=== PATIENT | female | born 1940 | race Caucasian/White ===

== ENCOUNTER → 2017-11-24 | Outpatient (CLI) | payer MEDICARE, OTHER ==
--- NOTE | 2017-11-24 15:05 | XR ---
EXAMINATION TYPE: XR chest 2V DATE OF EXAM: 11/24/2017 COMPARISON: None HISTORY: 77-year-old female with cough TECHNIQUE: Frontal and lateral views FINDINGS: S-shaped scoliosis and accentuated mid thoracic kyphosis. Mild anterior wedging of a midthoracic vert ebral body. Age indeterminate. Heart normal size. Aorta and pulmonary vasculature are within normal l imits. Mild hyperinflation. There is some patchy density at the peripheral left base. No other consol idation or pleural effusion. IMPRESSION: 1. Possible underlying COPD. 2. Some patchy peripheral left basilar density could represent early developing infiltrate. 3. S-shaped scoliosis. 4. Anterior wedging of a midthoracic vertebral body is age indeterminate. Correlate for focal pain at this level.
== END | disposition home or self-care (01) ==
LOC: RADXRYALE 11:19
PROVIDERS: ATTEND Internal Medicine
DX: J98.4 Other disorders of lung (principal); R05 Cough
CPT/HCPCS: 71046

== ENCOUNTER 2017-12-15 16:42 | Emergency (ER) | payer MEDICARE, OTHER ==
[2017-12-15 16:56] VITALS: BP 179/85; PULSE 85; RESP 17; TEMP 97.5
[2017-12-15] MEDS ORDERED: LIDOCAINE/EPINEPHR/TETRACAINE 5 ML BOTTLE TOPICAL ONE (17:03)
[2017-12-15] MEDS ORDERED: DIPH,PERTUS(ACELL)TETVAC-LF 0.5 ML VIAL IM ONE (17:03)
--- NOTE | 2017-12-15 17:37 | XR ---
EXAMINATION TYPE: XR shoulder complete LT DATE OF EXAM: 12/15/2017 COMPARISON: NONE HISTORY: Shoulder pain TECHNIQUE: 3 views FINDINGS: I see no fracture nor dislocation. Joint spaces are fairly normal. There is mild spurring o f the inferior glenoid labrum. IMPRESSION: Minimal spurring. No fracture seen.
--- NOTE | 2017-12-15 17:41 | CT ---
EXAMINATION TYPE: CT brain reilly day DATE OF EXAM: 12/15/2017 COMPARISON: NONE HISTORY: Fall today with chin injury CT DLP: 1354.9 mGycm Automated exposure control for dose reduction was used. TECHNIQUE: CT scan of the head and cervical spine are performed without contrast. FINDINGS: There is cerebral cortical atrophy. There is no mass effect nor midline shift. There is n o sign of intracranial hemorrhage. There is some patchy hypodensity in the periventricular white guille er. The calvarium appears intact. The cervical vertebra have fairly normal alignment. There is mild spurring of the endplates. There is spurring at C5-6 anteriorly and posteriorly. Facet joints are intact. There is no sign of a fracture . The skull base appears intact. IMPRESSION: Cerebral atrophy and chronic small vessel ischemia. No acute intracranial abnormality. Mild spondylotic changes in the cervical spine. No fracture. Bone island noted in the left side C2 ve rtebral body.
--- NOTE | 2017-12-15 17:48 | ED ---
General Adult HPI - General Chief complaint: Wound/Laceration Stated complaint: Fall Time Seen by Provider: 12/15/17 16:58 Source: patient, RN notes reviewed Mode of arrival: wheelchair Limitations: no limitations - History of Present Illness Initial comments: 77-year-old female presents to the emergency department with cc of fall. patient tripped on her sock today and fell forward onto her chin. There was no LOC. She denies any lightheadedness or dizziness before the fall. She states that she fell forward and she hit her chin. She also complains of some left shoulder pain. She has not any blood thinners. There were concerned due to the bleeding from the chin so they thought that they should be seen. They do not recall her last tetanus. They deny any other symptoms and the patient. Patient denies any headache.Patient denies any recent fever, chills, shortness of breath, chest pain, back pain, abdominal pain, nausea vomiting, numbness or tingling, dysuria or hematuria, constipation or diarrhea, headaches or visual changes, or any other current symptoms. - Related Data Allergies Allergy/AdvReac Type Severity Reaction Status Date / Time No Known Allergies Allergy Verified 12/15/17 16:51 Review of Systems ROS Statement: Those systems with pertinent positive or pertinent negative responses have been documented in the HPI. ROS Other: All systems not noted in ROS Statement are negative. Past Medical History Past Medical History: Hypertension, Thyroid Disorder History of Any Multi-Drug Resistant Organisms: None Reported Past Surgical History: Unable to Obtain Past Psychological History: No Psychological Hx Reported Smoking Status: Never smoker Past Alcohol Use History: None Reported Past Drug Use History: None Reported General Exam Limitations: no limitations General appearance: alert, in no apparent distress Head exam: Present: atraumatic, normocephalic, normal inspection, other (chin laceration 3 cm) Eye exam: Present: normal appearance, PERRL, EOMI. Absent: scleral icterus, conjunctival injection, periorbital swelling ENT exam: Present: normal exam, mucous membranes moist Neck exam: Present: normal inspection. Absent: tenderness, meningismus, lymphadenopathy Respiratory exam: Present: normal lung sounds bilaterally. Absent: respiratory distress, wheezes, rales, rhonchi, stridor Cardiovascular Exam: Present: regular rate, normal rhythm, normal heart sounds. Absent: systolic murmur, diastolic murmur, rubs, gallop, clicks GI/Abdominal exam: Present: soft, normal bowel sounds. Absent: distended, tenderness, guarding, rebound, rigid Extremities exam: Present: normal inspection, full ROM, tenderness (minimal to the left shoulder), normal capillary refill. Absent: pedal edema, joint swelling, calf tenderness Back exam: Present: normal inspection, full ROM. Absent: tenderness Neurological exam: Present: alert Psychiatric exam: Present: normal affect, normal mood Skin exam: Present: warm, dry, intact, normal color. Absent: rash Course Vital Signs 12/15/17 16:52 Temperature 97.5 F L Pulse Rate 85 Respiratory 17 Rate Blood Pressure 179/85 O2 Sat by Pulse 95 Oximetry Procedures - Procedures Initial comment: The skin was anesthetized with 1% lidocaine. The laceration was then cleansed with Betadine and irrigated with normal saline. The wound was inspected, and there was no evidence of injury to deep structures. No foreign body was noted in the wound. A total of 4 skin sutures were placed utilizing 6-0 nylon to a 3 cm chin laceration. Medical Decision Making - Medical Decision Making 77-year-old female presents for treatment fall. This time x-rays are reviewed that showed no acute process. At this time patient's did refuse her tetanus because she believes that she does have a reaction to it. At this time we did undergo suture care. We discussed follow-up return parameters. We discussed long-term and all questions. They stated the [facility] management this is an. All questions have been answered. They will be discharged. - Radiology Data Radiology results: report reviewed, image reviewed Disposition Clinical Impression: Fall, Chin laceration, Contusion of left shoulder Disposition: HOME SELF-CARE Condition: Stable Instructions: Care For Your Stitches (ED), Stitches Removal (ED) Additional Instructions: Please use medication as discussed. Please follow up with family doctor if symptoms have not improved over the next two days. Please return to the emergency room if your symptoms increase or worsen or for any other concerns. Please return to the emergency room in 5 days to have sutures removed. Please leave wound covered for the first 24-48 hours and then leave open to air after that time. Please use clean soap and water to clean the suture area to prevent scabbing over the top of your sutures. Please watch for any signs of infection which may include but not limited to increased pain, swelling, redness, fever or chills. Please return to the emergency room if any signs of infection do occur. Please return to the emergency room for any other concerns or complications. Referrals: Kelin To MD [Primary Care Provider] - 1-2 days Time of Disposition: 17:59
== END 2017-12-15 18:12 | disposition home or self-care (01) ==
LOC: EC 16:42
DX: S01.81XA Laceration without foreign body of other part of head, initial encounter (principal); S40.012A Contusion of left shoulder, initial encounter; Z53.29 Procedure and treatment not carried out because of patient's decision for other reasons; W01.198A Fall on same level from slipping, tripping and stumbling with subsequent striking against other object, initial encounter
CPT/HCPCS: 12013; 70450; 72125; 99284

== ENCOUNTER 2018-02-11 16:14 | Observation (INO) | payer MEDICARE, OTHER ==
[2018-02-11] MEDS ORDERED: SODIUM CHLORIDE 0.9% 500 ML IV ONE (16:25)
[2018-02-11] MEDS ORDERED: SODIUM CHLORIDE 0.9% 1,000 ML IV ONE (16:25)
[2018-02-11 16:30] LABS: Glucose,Whole Blood 146 mg/dL (75-99)
--- NOTE | 2018-02-11 16:35 | ED ---
General Adult HPI - General Chief complaint: Altered Mental Status Stated complaint: CONFUSION X 3 DAYS Time Seen by Provider: 02/11/18 16:25 Source: family, RN notes reviewed, old records reviewed Mode of arrival: wheelchair Limitations: no limitations - History of Present Illness Initial comments: This is a 78-year-old female the ER for evaluation regarding to altered mental state. Patient is on multiple medications for dementia, main combative and argumentative with staff which is similar she's had before but is much worse today. Family also states patient's blood pressure is out of control. Patient herself denies any complaint - Related Data Home Medications Medication Instructions Recorded Confirmed Carbidopa-Levodopa 25-100 mg 2.5 tab PO QID 02/11/18 02/12/18 [Sinemet 25-100 mg] Fludrocortisone [Florinef] 0.1 mg PO DAILY 02/11/18 02/12/18 Ibuprofen [Ibuprofen] 600 mg PO Q6H PRN 02/11/18 02/12/18 Memantine [Namenda] 5 mg PO BID@0800,1600 02/11/18 02/12/18 Pimavanserin Tartrate [Nuplazid] 34 mg PO DAILY 02/11/18 02/12/18 Propylene Glycol/Peg 400/Pf 1 drop BOTH EYES BID 02/11/18 02/12/18 [Systane 0.3-0.4% Eye Drops] Sertraline [Zoloft] 50 mg PO DAILY 02/11/18 02/12/18 rOPINIRole HCL [Requip] 0.25 mg PO TID@0800,1200,1800 02/11/18 02/12/18 Previous Rx's Medication Instructions Recorded ALPRAZolam [Xanax] 0.25 mg PO TID PRN 3 Days #9 tab 02/12/18 QUEtiapine [SEROquel] 25 mg PO HS PRN #20 tab 02/12/18 Allergies Allergy/AdvReac Type Severity Reaction Status Date / Time iodine Allergy Unknown Verified 02/12/18 08:11 Review of Systems ROS Statement: Those systems with pertinent positive or pertinent negative responses have been documented in the HPI. ROS Other: All systems not noted in ROS Statement are negative. Past Medical History Past Medical History: Dementia, Hypertension, Thyroid Disorder Additional Past Medical History / Comment(s): parkinsons disease History of Any Multi-Drug Resistant Organisms: None Reported Past Surgical History: Unable to Obtain Past Psychological History: Depression Smoking Status: Never smoker Past Alcohol Use History: None Reported Past Drug Use History: None Reported - Past Family History Sister(s) Family Medical History: Musculoskeletal Disorder Additional Family Medical History / Comment(s): One sister had MS, one sister has chronic UTIs. Brother(s) Additional Family Medical History / Comment(s): Essential tremors Father Additional Family Medical History / Comment(s): Had heart problems, been 50 years. General Exam Limitations: no limitations General appearance: alert, in no apparent distress Head exam: Present: atraumatic, normocephalic, normal inspection Eye exam: Present: normal appearance, PERRL, EOMI. Absent: scleral icterus, conjunctival injection, periorbital swelling ENT exam: Present: normal exam, mucous membranes moist Neck exam: Present: normal inspection. Absent: tenderness, meningismus, lymphadenopathy Respiratory exam: Present: normal lung sounds bilaterally. Absent: respiratory distress, wheezes, rales, rhonchi, stridor Cardiovascular Exam: Present: regular rate, normal rhythm, normal heart sounds. Absent: systolic murmur, diastolic murmur, rubs, gallop, clicks GI/Abdominal exam: Present: soft, normal bowel sounds. Absent: distended, tenderness, guarding, rebound, rigid Extremities exam: Present: normal inspection, full ROM, normal capillary refill. Absent: tenderness, pedal edema, joint swelling, calf tenderness Back exam: Present: normal inspection Neurological exam: Present: alert, oriented X3, CN II-XII intact Psychiatric exam: Present: normal affect, normal mood Skin exam: Present: warm, dry, intact, normal color. Absent: rash Course Vital Signs 02/11/18 02/11/18 02/11/18 16:19 17:10 17:35 Temperature 97.3 F L Pulse Rate 81 96 102 H Respiratory 20 20 20 Rate Blood Pressure 202/95 188/98 159/82 O2 Sat by Pulse 98 100 100 Oximetry 02/11/18 02/11/18 18:35 20:00 Temperature 98.6 F Pulse Rate 77 92 Respiratory 18 22 Rate Blood Pressure 168/67 168/80 O2 Sat by Pulse 100 99 Oximetry EKG Findings - EKG Comments: EKG Findings:: EKG shows sinus rhythm rate of 88, GA 172, QRS 70, QTc 462 Medical Decision Making - Medical Decision Making 78 female the ER for evaluation cough congestion shortness of breath patient will be admitted for breathing treatments and monitoring of cardiopulmonary status - Lab Data Result diagrams: 02/11/18 17:10 02/11/18 17:10 Lab Results 02/11/18 02/11/18 02/11/18 Range/Units 16:29 17:10 17:10 WBC (3.8-10.6) k/uL RBC (3.80-5.40) m/uL Hgb (11.4-16.0) gm/dL Hct (34.0-46.0) % MCV (80.0-100.0) fL MCH (25.0-35.0) pg MCHC (31.0-37.0) g/dL RDW (11.5-15.5) % Plt Count (150-450) k/uL Neutrophils % % Lymphocytes % % Monocytes % % Eosinophils % % Basophils % % Neutrophils # (1.3-7.7) k/uL Lymphocytes # (1.0-4.8) k/uL Monocytes # (0-1.0) k/uL Eosinophils # (0-0.7) k/uL Basophils # (0-0.2) k/uL PT (9.0-12.0) sec INR (<1.2) APTT (22.0-30.0) sec Sodium (137-145) mmol/L Potassium (3.5-5.1) mmol/L Chloride (98-107) mmol/L Carbon Dioxide (22-30) mmol/L Anion Gap mmol/L BUN (7-17) mg/dL Creatinine (0.52-1.04) mg/dL Est GFR (CKD-EPI)AfAm (>60 ml/min/1.73 sqM) Est GFR (CKD-EPI)NonAf (>60 ml/min/1.73 sqM) Glucose (74-99) mg/dL POC Glucose (mg/dL) 146 H (75-99) mg/dL POC Glu [employer] ID [employer], Romy Calcium (8.4-10.2) mg/dL Total Bilirubin (0.2-1.3) mg/dL AST (14-36) U/L ALT (9-52) U/L Alkaline Phosphatase (38-126) U/L Ammonia <9 (<30) umol/L Total Creatine Kinase 32 (30-135) U/L CK-MB (CK-2) <0.2 (0.0-2.4) ng/mL CK-MB (CK-2) Rel Index Troponin I <0.012 (0.000-0.034) ng/mL Total Protein (6.3-8.2) g/dL Albumin (3.5-5.0) g/dL Urine Color Urine Appearance (Clear) Urine pH (5.0-8.0) Ur Specific [place] (1.001-1.035) Urine Protein (Negative) Urine Glucose (UA) (Negative) Urine Ketones (Negative) Urine Blood (Negative) Urine Nitrite (Negative) Urine Bilirubin (Negative) Urine Urobilinogen (<2.0) mg/dL Ur Leukocyte Esterase (Negative) Urine RBC (0-5) /hpf Urine WBC (0-5) /hpf Ur Squamous Epith Cells (0-4) /hpf Urine Bacteria (None) /hpf Hyaline Casts (0-2) /lpf Urine Mucus (None) /hpf Urine Opiates Screen (NotDetected) Ur Oxycodone Screen (NotDetected) Urine Methadone Screen (NotDetected) Ur Propoxyphene Screen (NotDetected) Ur Barbiturates Screen (NotDetected) U Tricyclic Antidepress (NotDetected) Ur Phencyclidine Scrn (NotDetected) Ur Amphetamines Screen (NotDetected) U Methamphetamines Scrn (NotDetected) U Benzodiazepines Scrn (NotDetected) Urine Cocaine Screen (NotDetected) U Marijuana (THC) Screen (NotDetected) 02/11/18 02/11/18 02/11/18 Range/Units 17:10 17:10 17:10 WBC 4.8 (3.8-10.6) k/uL RBC 4.19 (3.80-5.40) m/uL Hgb 12.3 (11.4-16.0) gm/dL Hct 37.4 (34.0-46.0) % MCV 89.3 (80.0-100.0) fL MCH 29.3 (25.0-35.0) pg MCHC 32.8 (31.0-37.0) g/dL RDW 13.3 (11.5-15.5) % Plt Count 179 (150-450) k/uL Neutrophils % 58 % Lymphocytes % 28 % Monocytes % 9 % Eosinophils % 3 % Basophils % 0 % Neutrophils # 2.8 (1.3-7.7) k/uL Lymphocytes # 1.3 (1.0-4.8) k/uL Monocytes # 0.4 (0-1.0) k/uL Eosinophils # 0.2 (0-0.7) k/uL Basophils # 0.0 (0-0.2) k/uL PT 10.9 (9.0-12.0) sec INR 1.1 (<1.2) APTT 22.3 (22.0-30.0) sec Sodium 145 (137-145) mmol/L Potassium 3.8 (3.5-5.1) mmol/L Chloride 104 (98-107) mmol/L Carbon Dioxide 28 (22-30) mmol/L Anion Gap 13 mmol/L BUN 29 H (7-17) mg/dL Creatinine 1.05 H (0.52-1.04) mg/dL Est GFR (CKD-EPI)AfAm 58 (>60 ml/min/1.73 sqM) Est GFR (CKD-EPI)NonAf 51 (>60 ml/min/1.73 sqM) Glucose 135 H (74-99) mg/dL POC Glucose (mg/dL) (75-99) mg/dL POC Glu [employer] ID Calcium 9.2 (8.4-10.2) mg/dL Total Bilirubin 0.6 (0.2-1.3) mg/dL AST 15 (14-36) U/L ALT 10 (9-52) U/L Alkaline Phosphatase 136 H (38-126) U/L Ammonia (<30) umol/L Total Creatine Kinase (30-135) U/L CK-MB (CK-2) (0.0-2.4) ng/mL CK-MB (CK-2) Rel Index Troponin I (0.000-0.034) ng/mL Total Protein 6.4 (6.3-8.2) g/dL Albumin 3.9 (3.5-5.0) g/dL Urine Color Urine Appearance (Clear) Urine pH (5.0-8.0) Ur Specific [place] (1.001-1.035) Urine Protein (Negative) Urine Glucose (UA) (Negative) Urine Ketones (Negative) Urine Blood (Negative) Urine Nitrite (Negative) Urine Bilirubin (Negative) Urine Urobilinogen (<2.0) mg/dL Ur Leukocyte Esterase (Negative) Urine RBC (0-5) /hpf Urine WBC (0-5) /hpf Ur Squamous Epith Cells (0-4) /hpf Urine Bacteria (None) /hpf Hyaline Casts (0-2) /lpf Urine Mucus (None) /hpf Urine Opiates Screen (NotDetected) Ur Oxycodone Screen (NotDetected) Urine Methadone Screen (NotDetected) Ur Propoxyphene Screen (NotDetected) Ur Barbiturates Screen (NotDetected) U Tricyclic Antidepress (NotDetected) Ur Phencyclidine Scrn (NotDetected) Ur Amphetamines Screen (NotDetected) U Methamphetamines Scrn (NotDetected) U Benzodiazepines Scrn (NotDetected) Urine Cocaine Screen (NotDetected) U Marijuana (THC) Screen (NotDetected) 02/11/18 Range/Units 17:46 WBC (3.8-10.6) k/uL RBC (3.80-5.40) m/uL Hgb (11.4-16.0) gm/dL Hct (34.0-46.0) % MCV (80.0-100.0) fL MCH (25.0-35.0) pg MCHC (31.0-37.0) g/dL RDW (11.5-15.5) % Plt Count (150-450) k/uL Neutrophils % % Lymphocytes % % Monocytes % % Eosinophils % % Basophils % % Neutrophils # (1.3-7.7) k/uL Lymphocytes # (1.0-4.8) k/uL Monocytes # (0-1.0) k/uL Eosinophils # (0-0.7) k/uL Basophils # (0-0.2) k/uL PT (9.0-12.0) sec INR (<1.2) APTT (22.0-30.0) sec Sodium (137-145) mmol/L Potassium (3.5-5.1) mmol/L Chloride (98-107) mmol/L Carbon Dioxide (22-30) mmol/L Anion Gap mmol/L BUN (7-17) mg/dL Creatinine (0.52-1.04) mg/dL Est GFR (CKD-EPI)AfAm (>60 ml/min/1.73 sqM) Est GFR (CKD-EPI)NonAf (>60 ml/min/1.73 sqM) Glucose (74-99) mg/dL POC Glucose (mg/dL) (75-99) mg/dL POC Glu Vice President [employer] ID Calcium (8.4-10.2) mg/dL Total Bilirubin (0.2-1.3) mg/dL AST (14-36) U/L ALT (9-52) U/L Alkaline Phosphatase (38-126) U/L Ammonia (<30) umol/L Total Creatine Kinase (30-135) U/L CK-MB (CK-2) (0.0-2.4) ng/mL CK-MB (CK-2) Rel Index Troponin I (0.000-0.034) ng/mL Total Protein (6.3-8.2) g/dL Albumin (3.5-5.0) g/dL Urine Color Yellow Urine Appearance Cloudy H (Clear) Urine pH 6.0 (5.0-8.0) Ur Specific [place] 1.015 (1.001-1.035) Urine Protein Trace H (Negative) Urine Glucose (UA) Negative (Negative) Urine Ketones Trace H (Negative) Urine Blood Small H (Negative) Urine Nitrite Negative (Negative) Urine Bilirubin Negative (Negative) Urine Urobilinogen 2.0 (<2.0) mg/dL Ur Leukocyte Esterase Moderate H (Negative) Urine RBC 10 H (0-5) /hpf Urine WBC 34 H (0-5) /hpf Ur Squamous Epith Cells <1 (0-4) /hpf Urine Bacteria Many H (None) /hpf Hyaline Casts 1 (0-2) /lpf Urine Mucus Rare H (None) /hpf Urine Opiates Screen Not Detected (NotDetected) Ur Oxycodone Screen Not Detected (NotDetected) Urine Methadone Screen Not Detected (NotDetected) Ur Propoxyphene Screen Not Detected (NotDetected) Ur Barbiturates Screen Not Detected (NotDetected) U Tricyclic Antidepress Not Detected (NotDetected) Ur Phencyclidine Scrn Not Detected (NotDetected) Ur Amphetamines Screen Not Detected (NotDetected) U Methamphetamines Scrn Not Detected (NotDetected) U Benzodiazepines Scrn Not Detected (NotDetected) Urine Cocaine Screen Not Detected (NotDetected) U Marijuana (THC) Screen Not Detected (NotDetected) - Radiology Data Radiology results: report reviewed (CT brain CT chest negative for acute disease ), image reviewed Disposition Clinical Impression: Altered mental status, UTI (urinary tract infection) Disposition: ADMITTED IP TO THIS [facility] Condition: Good Is patient prescribed a controlled substance at d/c from ED?: No
[2018-02-11] MEDS ORDERED: LABETALOL 5 MG/ML VIAL MDV IVP STA (16:40)
[2018-02-11] MEDS ORDERED: RX INFO: IV CONTRAST WAS GIVEN 1 EACH MISC MISCELLANE PRN (16:40)
[2018-02-11] MEDS ORDERED: HYDROCORTISONE SUCCINATE 100 MG/2 ML VIAL IV STA (16:40)
[2018-02-11 17:24] LABS: Basophils % (A) 0 %; Eosinophils # (A) 0.2 k/uL (0-0.7); Eosinophils % (A) 3 %; HCT 37.4 % (34.0-46.0); HGB 12.3 gm/dL (11.4-16.0); Lymphocytes # (A) 1.3 k/uL (1.0-4.8); Lymphocytes % (A) 28 %; MCH 29.3 pg (25.0-35.0); MCHC 32.8 g/dL (31.0-37.0); MCV 89.3 fL (80.0-100.0); Mean Platelet Volume 6.8; Monocytes # (A) 0.4 k/uL (0-1.0); Monocytes % (A) 9 %; Neutrophils # (A) 2.8 k/uL (1.3-7.7); Neutrophils % (A) 58 %; Platelet Count 179 k/uL (150-450); RBC 4.19 m/uL (3.80-5.40); RDW 13.3 % (11.5-15.5); WBC 4.8 k/uL (3.8-10.6)
[2018-02-11 17:32] LABS: INR 1.1 (<1.2); Partial Thromboplastin Time 22.3 sec (22.0-30.0); Prothrombin Time 10.9 sec (9.0-12.0)
[2018-02-11 17:39] LABS: Albumin 3.9 g/dL (3.5-5.0); Calcium 9.2 mg/dL (8.4-10.2); Potassium 3.8 mmol/L (3.5-5.1); Total Bilirubin 0.6 mg/dL (0.2-1.3); Total Protein 6.4 g/dL (6.3-8.2)
[2018-02-11 17:42] LABS: Creatine Kinase 32 U/L (30-135)
[2018-02-11 17:54] LABS: Creatine Kinase MB <0.2 ng/mL (0.0-2.4); Troponin I <0.012 ng/mL (0.000-0.034)
[2018-02-11 18:16] LABS: Appearance,Urine Cloudy (Clear); Bacteria,Urine Many /hpf; Bilirubin,Urine Negative (Negative); Blood,Urine Small (Negative); Color,Urine Yellow; Glucose,Urine (UA) Negative (Negative); Hyaline Casts,Urine 1 /lpf (0-2); Ketones,Urine Trace (Negative); Leukocyte Esterase,Urine Moderate (Negative); Mucus,Urine Rare /hpf; Nitrite,Urine Negative (Negative); Protein,Urine Trace (Negative); RBC,Urine 10 /hpf (0-5); Specific Gravity,Urine 1.015 (1.001-1.035); Squamous Epithelial Cell,Urine <1 /hpf (0-4); WBC,Urine 34 /hpf (0-5)
[2018-02-11 18:21] LABS: Amphetamine Screen,Urine Not Detected (NotDetected); Barbiturate Screen,Urine Not Detected (NotDetected); Benzodiazepines Screen,Urine Not Detected (NotDetected); Cocaine Screen,Urine Not Detected (NotDetected); Methadone Screen, Urine Not Detected (NotDetected); Opiate Screen,Urine Not Detected (NotDetected); Oxycodone Screen, Urine Not Detected (NotDetected); Phencyclidine Screen,Urine Not Detected (NotDetected); Tricyclic Antidepressant,Urine Not Detected (NotDetected); Urn Cannabinoid Scrn Not Detected (NotDetected)
[2018-02-11] MEDS ORDERED: cefTRIAXone IN SWFI 1,000 MG/10 ML SYRINGE IVP STA (18:30)
--- NOTE | 2018-02-11 18:48 | CT ---
EXAMINATION TYPE: CT brain wo con DATE OF EXAM: 02/11/2018 COMPARISON: 12/15/2017 INDICATION: Confusion x3 days DLP: 826.5 mGycm, Automated exposure control for dose reduction was used. CONTRAST: None CT of the brain is performed utilizing 3 mm thick sections through the posterior fossa and 3 mm thick sections through the remaining calvarium. Study is performed within 24 hours of arrival to the hosp ital. The inferior most portion of the posterior fossa is excluded from the [id number]. No abnormal hyperdensity is present to suggest an acute intracranial hemorrhage. No mass lesion is evident. No acute infarcts are evident. There is periventricular white matter hypodensity, likely on the basis of chronic white matter ischemic change. This includes hypodensity within the brainstem. This was pr esent previously. Ventricles and sulci are mildly prominent. for the patient age. Paranasal sinuses and mastoid air cells within the [id number] are clear. IMPRESSIONS: 1. Atrophy with periventricular and brainstem white matter ischemic type changes.
--- NOTE | 2018-02-11 19:29 | CT ---
CT CHEST FOR PULMONARY EMBOLISM. EXAMINATION TYPE: CT angio chest DATE OF EXAM: 02/11/2018 INDICATION: Confusion x3 days CT DLP: 177.7 mGycm, Automated exposure control for dose reduction was used. CONTRAST: Patient injected with 80 mL of Isovue 370. COMPARISON: NONE TECHNIQUE: CT of the chest is performed on a spiral scan at 2 mm thick sections. Study is performed with intravenous contrast timed for evaluation for pulmonary embolism. This will limit additional po rtions of the evaluation. 3-D MIP images reconstructed by the technologist are reviewed on the compu ter in the coronal and sagittal planes. FINDINGS: No persistent filling defects are evident to suggest an acute pulmonary embolism. No mediastinal or hilar adenopathy enlarged by CT criteria is evident. The ascending aorta diameter at the level of the main pulmonary artery is 3.4 cm. The main pulmonary artery diameter at the bifur cation is 2.4 cm. Minimal compressive atelectasis within the dependent portions of the lung bases are present bilateral ly. Small nodular density in the posterior right lung base measuring 0.7 cm may be present. Series [address] sections are obtained through the upper abdomen. Cholelithiasis is present. There appear t o be hepatic cysts present. IMPRESSIONS: 1. No acute pulmonary embolism. 2. Compressive atelectasis posterior dependent lung bases bilaterally. An underlying nodule measuring 0.7 cm at the right lung base is not excluded. Follow-up is recommended.
[2018-02-11 21:27] VITALS: RESP 16
[2018-02-11 21:51] VITALS: BMI 18.8
[2018-02-11] MEDS: MEMANTINE 5 MG TAB PO SCH (23:33)
[2018-02-11] MEDS: CARBIDOPA-LEVODOPA 25-100 MG 1 EACH TAB PO SCH (23:34)
[2018-02-12] MEDS: MEMANTINE 5 MG TAB PO SCH (08:11)
[2018-02-12] MEDS: CARBIDOPA-LEVODOPA 25-100 MG 1 EACH TAB PO SCH ×3 (08:11→15:57)
[2018-02-12] MEDS ORDERED: cefTRIAXone IN SWFI 1,000 MG/10 ML SYRINGE IVP SCH (09:00)
[2018-02-12] MEDS ORDERED: SERTRALINE 50 MG TAB PO SCH (12:30)
[2018-02-12 15:25] VITALS: BP 142/82; PULSE 90; TEMP 97.9
--- NOTE | 2018-02-12 17:26 | P.HPIM ---
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 Patient was a believed to have urinary tract infection and was admitted and patient is pleasant today denied any dysuria nausea vomiting suprapubic pain patient doesn't have any leukocytosis doesn't have any fever, patient does have moderate leukocyte esterase with elevated white blood cell count in the urine many bacteria. But I do not believe patient has urinary tract infection patient has a symptomatically bacteriuria which is not responsible for her agitation episodes rather it's Parkinson's and Parkinsonian dementia doing that. I had discussion at length with her neurologist and psychiatric rest. Neurologist recommended Xanax for have agitation although I believe that will worsen her agitation because of which I gave her both Xanax prescription if her symptoms worsen with xanax patient was asked to take Seroquel. Neurologist is agreeable with Seroquel is Xanax worsens her agitation. The concerns with Seroquel is because of neck several side effects including pseudo-Parkinson's. Patient does have resting tremor. Patient is alert oriented times close to 2. Patient lives at an assisted living. Review of Systems REVIEW OF SYSTEMS: CONSTITUTIONAL: No fever, no malaise, no fatigue. HEENT: No recent visual problems or hearing problems. Denied any sore throat. CARDIOVASCULAR: No chest pain, orthopnea, PND, no palpitations, no syncope. PULMONARY: No shortness of breath, no cough, no hemoptysis. GASTROINTESTINAL: No diarrhea, no nausea, no vomiting, no abdominal pain. Normoactive bowel sounds. NEUROLOGICAL: No headaches, no weakness, no numbness. HEMATOLOGICAL: Denies any bleeding or petechiae. GENITOURINARY: Denies any burning micturition, frequency, or urgency. MUSCULOSKELETAL/RHEUMATOLOGICAL: Denies any joint pain, swelling, or any muscle pain. ENDOCRINE: Denies any polyuria or polydipsia. The rest of the 14-point review of systems is negative. Past Medical History Past Medical History: Dementia, Hypertension, Memory Impairment, Neurologic Disorder Additional Past Medical History / Comment(s): Parkinson's disease, usually has low BPs (takes Midodrine) but came in with high BPs. History of Any Multi-Drug Resistant Organisms: None Reported Past Surgical History: Tubal Ligation Additional Past Surgical History / Comment(s): Had one cataract removed (unsure which one). Colonoscopy, breast biopsy (negative for ca). Additional Past Anesthesia/Blood Transfusion Reaction / Comment(s): Pt. states with one surgery she threw up and has a hard time waking up from anesthesia - patient cannot remember much. Past Psychological History: Depression Smoking Status: Never smoker Past Alcohol Use History: None Reported Past Drug Use History: None Reported - Past Family History Sister(s) Family Medical History: Musculoskeletal Disorder Additional Family Medical History / Comment(s): One sister had MS, one sister has chronic UTIs. Brother(s) Additional Family Medical History / Comment(s): Essential tremors Father Additional Family Medical History / Comment(s): Had heart problems, been 50 years. Medications and Allergies Home Medications Medication Instructions Recorded Confirmed Type Carbidopa-Levodopa 25-100 mg 2.5 tab PO QID 02/11/18 02/12/18 History [Sinemet 25-100 mg] Fludrocortisone [Florinef] 0.1 mg PO DAILY 02/11/18 02/12/18 History Ibuprofen [Ibuprofen] 600 mg PO Q6H PRN 02/11/18 02/12/18 History Memantine [Namenda] 5 mg PO BID@0800,1600 02/11/18 02/12/18 History Midodrine [ProAmatine] 5 mg PO TID@0800,1200,1800 02/11/18 02/12/18 History Pimavanserin Tartrate [Nuplazid] 34 mg PO DAILY 02/11/18 02/12/18 History Propylene Glycol/Peg 400/Pf 1 drop BOTH EYES BID 02/11/18 02/12/18 History [Systane 0.3-0.4% Eye Drops] Sertraline [Zoloft] 50 mg PO DAILY 02/11/18 02/12/18 History rOPINIRole HCL [Requip] 0.25 mg PO TID@0800,1200,1800 02/11/18 02/12/18 History ALPRAZolam [Xanax] 0.25 mg PO TID PRN 3 Days #9 tab 02/12/18 Rx QUEtiapine [SEROquel] 25 mg PO HS PRN #20 tab 02/12/18 Rx Allergies Allergy/AdvReac Type Severity Reaction Status Date / Time iodine Allergy Unknown Verified 02/12/18 08:11 Physical Exam Vitals: Vital Signs Temp Pulse Pulse Resp BP BP Pulse Ox 02/12/18 15:06 16 02/12/18 14:45 97.9 F 90 16 142/82 96 02/12/18 08:08 96 02/12/18 05:50 98.3 F 83 16 166/91 96 02/11/18 23:00 98.4 F 76 16 154/78 100 02/11/18 21:26 97.5 F L 81 16 158/92 02/11/18 20:00 98.6 F 92 22 168/80 99 02/11/18 18:35 77 18 168/67 100 02/11/18 17:35 102 H 20 159/82 100 Intake and Output 02/12/18 02/12/18 02/12/18 06:59 14:59 22:59 Intake Total 600 Balance 600 Intake: Oral 600 Other: Voiding Method Toilet Bedside Commode # Voids 3 3 Weight 53 kg PHYSICAL EXAMINATION: GENERAL: The patient is alert and oriented x2, not in any acute distress. Thin built, does have resting tremor HEENT: Pupils are round and equally reacting to light. EOMI. No scleral icterus. No conjunctival pallor. Normocephalic, atraumatic. No pharyngeal erythema. No thyromegaly. CARDIOVASCULAR: S1 and S2 present. No murmurs, rubs, or gallops. PULMONARY: Chest is clear to auscultation, no wheezing or crackles. ABDOMEN: Soft, nontender, nondistended, normoactive bowel sounds. No palpable organomegaly. MUSCULOSKELETAL: No joint swelling or deformity. EXTREMITIES: No cyanosis, clubbing, or pedal edema. NEUROLOGICAL: Gross neurological examination did not reveal any focal deficits. SKIN: No rashes. Results CBC & Chem 7: 02/11/18 17:10 02/11/18 17:10 Labs: Abnormal Lab Results - Last 24 Hours (Table) 02/11/18 02/11/18 Range/Units 17:10 17:46 BUN 29 H (7-17) mg/dL Creatinine 1.05 H (0.52-1.04) mg/dL Glucose 135 H (74-99) mg/dL Alkaline Phosphatase 136 H (38-126) U/L Urine Appearance Cloudy H (Clear) Urine Protein Trace H (Negative) Urine Ketones Trace H (Negative) Urine Blood Small H (Negative) Ur Leukocyte Esterase Moderate H (Negative) Urine RBC 10 H (0-5) /hpf Urine WBC 34 H (0-5) /hpf Urine Bacteria Many H (None) /hpf Urine Mucus Rare H (None) /hpf Thrombosis Risk Factor Assmnt - Choose All That Apply Any of the Below Risk Factors Present?: No Other Risk Factors: Yes Each Risk Factor Represents 3 Points: Age 75 years or older Other congenital or acquired thrombophilia - If yes, enter type in comment: No Thrombosis Risk Factor Assessment Total Risk Factor Score: 3 Thrombosis Risk Factor Assessment Level: Moderate Risk Assessment and Plan Plan: -Episodes of agitation and altered mental status: Secondary to worsening 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 Patient doesn't not have urinary tract infection patient has a symptom any bacteria which doesn't warrant any antibiotics. Fluoroquinolones actually will worsen her agitation and altered mental status -Asymptomatic bacteriuria -Parkinson's with residual symptoms -Hypertension -Patient had issues with hypotension presently patient has significant elevated blood pressure patient is on protocol Which Will Be Continued Although Midodrin will be discontinued
--- NOTE | 2018-02-12 17:31 | P.DS ---
Providers Date of admission: 02/11/18 19:18 Attending physician: Mellissa Bauer Primary care physician: Kelin To Va Hospital Course: As mentioned in HPI Patient Condition at Discharge: Good Plan - Discharge Summary Discharge Rx Participant: No New Discharge Prescriptions: New ALPRAZolam [Xanax] 0.25 mg PO TID PRN 3 Days #9 tab PRN Reason: Agitation QUEtiapine [SEROquel] 25 mg PO HS PRN #20 tab PRN Reason: Agitation Discontinued Midodrine [ProAmatine] 5 mg PO TID@0800,1200,1800 No Action Carbidopa-Levodopa 25-100 mg [Sinemet 25-100 mg] 2.5 tab PO QID Ibuprofen [Ibuprofen] 600 mg PO Q6H PRN PRN Reason: Pain Fludrocortisone [Florinef] 0.1 mg PO DAILY Pimavanserin Tartrate [Nuplazid] 34 mg PO DAILY Memantine [Namenda] 5 mg PO BID@0800,1600 Propylene Glycol/Peg 400/Pf [Systane 0.3-0.4% Eye Drops] 1 drop BOTH EYES BID rOPINIRole HCL [Requip] 0.25 mg PO TID@0800,1200,1800 Sertraline [Zoloft] 50 mg PO DAILY Discharge Medication List Carbidopa-Levodopa 25-100 mg [Sinemet 25-100 mg] 2.5 tab PO QID 02/11/18 [ History] Fludrocortisone [Florinef] 0.1 mg PO DAILY 02/11/18 [History] Ibuprofen [Ibuprofen] 600 mg PO Q6H PRN 02/11/18 [History] Memantine [Namenda] 5 mg PO BID@0800,1600 02/11/18 [History] Pimavanserin Tartrate [Nuplazid] 34 mg PO DAILY 02/11/18 [History] Propylene Glycol/Peg 400/Pf [Systane 0.3-0.4% Eye Drops] 1 drop BOTH EYES BID [History] Sertraline [Zoloft] 50 mg PO DAILY 02/11/18 [History] rOPINIRole HCL [Requip] 0.25 mg PO TID@0800,1200,1800 02/11/18 [History] ALPRAZolam [Xanax] 0.25 mg PO TID PRN 3 Days #9 tab 05/07/18 [Rx] QUEtiapine [SEROquel] 25 mg PO HS PRN #20 tab 02/12/18 [Rx] Follow up Appointment(s)/Referral(s): Kelin To MD [Primary Care Provider] - 02/15/18 10:00 am Patient Instructions/Handouts: Urinary Tract Infection in Women (DC), Altered Mental Status (ED) Discharge Disposition: HOME SELF-CARE
[2018-02-12] MEDS ORDERED: ARTIFICIAL TEARS-HYPROMELLOSE DROPS 15 ML BTL BOTH EYES SCH (21:00)
[2018-02-13] MEDS ORDERED: NUPLAZID 34 MG PO SCH (09:00)
[2018-02-13] MEDS ORDERED: FLUDROCORTISONE 0.1 MG TAB PO SCH (09:00)
== END 2018-02-12 16:53 | disposition home or self-care (01) ==
LOC: EC 16:14 → 4MS4W 19:18
PROVIDERS: ADMIT Hospitalist; ATTEND Hospitalist
DX: G31.83 Neurocognitive disorder with Lewy bodies (principal); F02.81 Dementia in other diseases classified elsewhere, unspecified severity, with behavioral disturbance; R82.71 Bacteriuria; I10 Essential (primary) hypertension; E07.9 Disorder of thyroid, unspecified; I95.9 Hypotension, unspecified; F32.9 Major depressive disorder, single episode, unspecified; Z79.899 Other long term (current) drug therapy; Z79.52 Long term (current) use of systemic steroids; Z91.048 Other nonmedicinal substance allergy status; Z82.0 Family history of epilepsy and other diseases of the nervous system
CPT/HCPCS: 99285 ×2; 96374 ×2; 96375 ×3; 96361 ×8; 96376; 36415; 94760; 80053; 82140; 82550; 82553; 84484; 85025; 85610; 85730; 81001; 80306; 70450; 71275; G0378 ×2; J1720; J0696 ×2; Q9967

== ENCOUNTER 2018-02-26 13:27 | Emergency (ER) | payer MEDICARE, OTHER ==
[2018-02-26 13:35] VITALS: RESP 17
--- NOTE | 2018-02-26 13:51 | ED ---
General Adult HPI - General Chief complaint: Syncope Stated complaint: Syncope Time Seen by Provider: 02/26/18 13:32 Source: patient, EMS, RN notes reviewed, old records reviewed Mode of arrival: EMS Limitations: altered mental status - History of Present Illness Initial comments: 78-year-old female presents for suspected syncopal episode. She is presenting from the assisted living facility where she resides. She was eating lunch, she became unconscious and was difficult to arouse. Patient then awoke and was at baseline. She had no complaints according to EMS. She does have history of the body dementia and baseline confusion. She had recent admission with worsening agitation and was discharged in stable condition. She has no complaints time my evaluation. No headache or vision changes. No focal numbness or weakness. No chest pain or shortness of breath. No abdominal pain nausea vomiting. No fever. No dysuria. No pain complaints. EMS report no injury from episode. - Related Data Home Medications Medication Instructions Recorded Confirmed Carbidopa-Levodopa 25-100 mg 2.5 tab PO QID 02/11/18 02/26/18 [Sinemet 25-100 mg] Fludrocortisone [Florinef] 0.1 mg PO DAILY 02/11/18 02/26/18 Ibuprofen [Ibuprofen] 600 mg PO Q6H PRN 02/11/18 02/26/18 Memantine [Namenda] 5 mg PO BID@0800,1600 02/11/18 02/26/18 Propylene Glycol/Peg 400/Pf 1 drop BOTH EYES BID 02/11/18 02/26/18 [Systane 0.3-0.4% Eye Drops] Sertraline [Zoloft] 50 mg PO DAILY 02/11/18 02/26/18 rOPINIRole HCL [Requip] 0.25 mg PO TID@0800,1200,1800 02/11/18 02/26/18 H-Nuplazid 2 tab PO DAILY 02/26/18 02/26/18 Nitrofurantoin Macrocrystal 25 mg PO DAILY@199902/26/18 02/26/18 [Macrodantin] Previous Rx's Medication Instructions Recorded ALPRAZolam [Xanax] 0.25 mg PO TID PRN 3 Days #9 tab 02/12/18 Allergies Allergy/AdvReac Type Severity Reaction Status Date / Time iodine Allergy Unknown Verified 02/26/18 13:48 Review of Systems ROS Statement: Those systems with pertinent positive or pertinent negative responses have been documented in the HPI. ROS Other: All systems not noted in ROS Statement are negative. Past Medical History Past Medical History: Dementia, Hypertension, Thyroid Disorder Additional Past Medical History / Comment(s): parkinsons disease History of Any Multi-Drug Resistant Organisms: None Reported Past Surgical History: Unable to Obtain Additional Past Surgical History / Comment(s): Had one cataract removed (unsure which one). Colonoscopy, breast biopsy (negative for ca). Additional Past Anesthesia/Blood Transfusion Reaction / Comment(s): Pt. states with one surgery she threw up and has a hard time waking up from anesthesia - patient cannot remember much. Past Psychological History: Depression Smoking Status: Never smoker Past Alcohol Use History: None Reported Past Drug Use History: None Reported - Past Family History Sister(s) Family Medical History: Musculoskeletal Disorder Additional Family Medical History / Comment(s): One sister had MS, one sister has chronic UTIs. Brother(s) Additional Family Medical History / Comment(s): Essential tremors Father Additional Family Medical History / Comment(s): Had heart problems, been 50 years. General Exam Limitations: altered mental status General appearance: alert, in no apparent distress Head exam: Present: atraumatic, normocephalic Eye exam: Present: normal appearance, PERRL, EOMI ENT exam: Present: normal exam Neck exam: Present: normal inspection. Absent: tenderness, meningismus Respiratory exam: Present: normal lung sounds bilaterally. Absent: respiratory distress, wheezes Cardiovascular Exam: Present: regular rate, normal rhythm GI/Abdominal exam: Present: soft. Absent: distended, tenderness Extremities exam: Present: normal inspection, normal capillary refill. Absent: pedal edema Neurological exam: Present: alert, CN II-XII intact. Absent: oriented X3, motor sensory deficit Psychiatric exam: Present: flat affect Skin exam: Present: warm, dry, intact. Absent: cyanosis, diaphoretic Course Vital Signs 02/26/18 02/26/18 13:30 14:29 Temperature 97.2 F L Pulse Rate 75 74 Respiratory 17 17 Rate Blood Pressure 121/72 108/69 O2 Sat by Pulse 94 L 100 Oximetry EKG Findings - EKG Comments: EKG Findings:: EKG: Normal sinus rhythm, rate of 75, NE interval 174, QRS duration 76, QTC 426 segment changes Medical Decision Making - Medical Decision Making 78-year-old female presenting with syncope. Further history obtained from the patient's family members who states she's had a long history of syncope. She was previously on Midrin she is no longer on this medication secondary to hypertension. Workup reveals normal sinus EKG, chest x-ray which is negative, mild leukopenia with a white blood cell count 3.1. Hemoglobin stable 12 CMP within normal limits, magnesium is mildly low 1.5. Urinalysis is clear, troponin negative. Patient has had recurrent episodes similar to this. Patient 's family is comfortable with discharge. She is currently an assisted living facility. - Lab Data Result diagrams: 02/26/18 13:44 02/26/18 13:44 Lab Results 02/26/18 02/26/18 02/26/18 Range/Units 13:44 13:44 13:44 WBC 3.1 L (3.8-10.6) k/uL RBC 4.02 (3.80-5.40) m/uL Hgb 12.0 (11.4-16.0) gm/dL Hct 36.1 (34.0-46.0) % MCV 89.8 (80.0-100.0) fL MCH 29.8 (25.0-35.0) pg MCHC 33.2 (31.0-37.0) g/dL RDW 13.9 (11.5-15.5) % Plt Count 109 L (150-450) k/uL Neutrophils % 62 % Lymphocytes % 26 % Monocytes % 9 % Eosinophils % 1 % Basophils % 0 % Neutrophils # 2.0 (1.3-7.7) k/uL Lymphocytes # 0.8 L (1.0-4.8) k/uL Monocytes # 0.3 (0-1.0) k/uL Eosinophils # 0.0 (0-0.7) k/uL Basophils # 0.0 (0-0.2) k/uL PT (9.0-12.0) sec INR (<1.2) APTT (22.0-30.0) sec Sodium 141 (137-145) mmol/L Potassium 3.7 (3.5-5.1) mmol/L Chloride 103 (98-107) mmol/L Carbon Dioxide 25 (22-30) mmol/L Anion Gap 13 mmol/L BUN 21 H (7-17) mg/dL Creatinine 0.90 (0.52-1.04) mg/dL Est GFR (CKD-EPI)AfAm 71 (>60 ml/min/1.73 sqM) Est GFR (CKD-EPI)NonAf 61 (>60 ml/min/1.73 sqM) Glucose 168 H (74-99) mg/dL Calcium 8.5 (8.4-10.2) mg/dL Magnesium 1.5 L (1.6-2.3) mg/dL Total Bilirubin 0.5 (0.2-1.3) mg/dL AST 22 (14-36) U/L ALT 18 (9-52) U/L Alkaline Phosphatase 94 (38-126) U/L Total Creatine Kinase 31 (30-135) U/L CK-MB (CK-2) <0.2 (0.0-2.4) ng/mL CK-MB (CK-2) Rel Index Troponin I <0.012 (0.000-0.034) ng/mL Total Protein 5.9 L (6.3-8.2) g/dL Albumin 3.6 (3.5-5.0) g/dL Urine Color Urine Appearance (Clear) Urine pH (5.0-8.0) Ur Specific Salley (1.001-1.035) Urine Protein (Negative) Urine Glucose (UA) (Negative) Urine Ketones (Negative) Urine Blood (Negative) Urine Nitrite (Negative) Urine Bilirubin (Negative) Urine Urobilinogen (<2.0) mg/dL Ur Leukocyte Esterase (Negative) 02/26/18 02/26/18 Range/Units 13:44 13:55 WBC (3.8-10.6) k/uL RBC (3.80-5.40) m/uL Hgb (11.4-16.0) gm/dL Hct (34.0-46.0) % MCV (80.0-100.0) fL MCH (25.0-35.0) pg MCHC (31.0-37.0) g/dL RDW (11.5-15.5) % Plt Count (150-450) k/uL Neutrophils % % Lymphocytes % % Monocytes % % Eosinophils % % Basophils % % Neutrophils # (1.3-7.7) k/uL Lymphocytes # (1.0-4.8) k/uL Monocytes # (0-1.0) k/uL Eosinophils # (0-0.7) k/uL Basophils # (0-0.2) k/uL PT 11.2 (9.0-12.0) sec INR 1.2 H (<1.2) APTT 27.1 (22.0-30.0) sec Sodium (137-145) mmol/L Potassium (3.5-5.1) mmol/L Chloride (98-107) mmol/L Carbon Dioxide (22-30) mmol/L Anion Gap mmol/L BUN (7-17) mg/dL Creatinine (0.52-1.04) mg/dL Est GFR (CKD-EPI)AfAm (>60 ml/min/1.73 sqM) Est GFR (CKD-EPI)NonAf (>60 ml/min/1.73 sqM) Glucose (74-99) mg/dL Calcium (8.4-10.2) mg/dL Magnesium (1.6-2.3) mg/dL Total Bilirubin (0.2-1.3) mg/dL AST (14-36) U/L ALT (9-52) U/L Alkaline Phosphatase (38-126) U/L Total Creatine Kinase (30-135) U/L CK-MB (CK-2) (0.0-2.4) ng/mL CK-MB (CK-2) Rel Index Troponin I (0.000-0.034) ng/mL Total Protein (6.3-8.2) g/dL Albumin (3.5-5.0) g/dL Urine Color Yellow Urine Appearance Clear (Clear) Urine pH 6.5 (5.0-8.0) Ur Specific Salley 1.013 (1.001-1.035) Urine Protein Trace H (Negative) Urine Glucose (UA) Negative (Negative) Urine Ketones Negative (Negative) Urine Blood Negative (Negative) Urine Nitrite Negative (Negative) Urine Bilirubin Negative (Negative) Urine Urobilinogen <2.0 (<2.0) mg/dL Ur Leukocyte Esterase Negative (Negative) Disposition Clinical Impression: Syncope Disposition: HOME SELF-CARE Condition: Fair Instructions: Syncope (ED) Is patient prescribed a controlled substance at d/c from ED?: No Referrals: Kelin To MD [Primary Care Provider] - 1-2 days Time of Disposition: 15:35
[2018-02-26 14:06] LABS: Appearance,Urine Clear (Clear); Bilirubin,Urine Negative (Negative); Blood,Urine Negative (Negative); Color,Urine Yellow; Glucose,Urine (UA) Negative (Negative); Ketones,Urine Negative (Negative); Leukocyte Esterase,Urine Negative (Negative); Nitrite,Urine Negative (Negative); PH, Urine 6.5 (5.0-8.0); Protein,Urine Trace (Negative); Specific Gravity,Urine 1.013 (1.001-1.035); Urobilinogen,Urine <2.0 mg/dL (<2.0)
[2018-02-26 14:06] LABS: Basophils % (A) 0 %; Eosinophils % (A) 1 %; HCT 36.1 % (34.0-46.0); Lymphocytes # (A) 0.8 k/uL (1.0-4.8); Lymphocytes % (A) 26 %; MCH 29.8 pg (25.0-35.0); MCHC 33.2 g/dL (31.0-37.0); MCV 89.8 fL (80.0-100.0); Mean Platelet Volume 7.3; Monocytes # (A) 0.3 k/uL (0-1.0); Monocytes % (A) 9 %; Neutrophils % (A) 62 %; Platelet Count 109 k/uL (150-450); RBC 4.02 m/uL (3.80-5.40); RDW 13.9 % (11.5-15.5); WBC 3.1 k/uL (3.8-10.6)
[2018-02-26 14:07] LABS: Albumin 3.6 g/dL (3.5-5.0); Calcium 8.5 mg/dL (8.4-10.2); Magnesium 1.5 mg/dL (1.6-2.3); Potassium 3.7 mmol/L (3.5-5.1); Total Bilirubin 0.5 mg/dL (0.2-1.3); Total Protein 5.9 g/dL (6.3-8.2)
[2018-02-26 14:11] LABS: INR 1.2 (<1.2); Partial Thromboplastin Time 27.1 sec (22.0-30.0); Prothrombin Time 11.2 sec (9.0-12.0)
[2018-02-26 14:16] LABS: Creatine Kinase 31 U/L (30-135)
--- NOTE | 2018-02-26 14:19 | XR ---
EXAMINATION TYPE: XR chest 2V DATE OF EXAM: 02/26/2018 COMPARISON: Prior chest 11/24/2017, CTA chest 02/11/2018 HISTORY: Syncope TECHNIQUE: Frontal and lateral views of the chest are obtained on 3 images. FINDINGS: There is no focal air space opacity, pleural effusion, or pneumothorax seen. The cardiac silhouette size is stable and enlarged. Kyphosis is again noted. There are compression deformities in the lower thoracic spine, scoliotic curvature again noted. IMPRESSION: No acute cardiopulmonary process.
[2018-02-26 14:30] LABS: Creatine Kinase MB <0.2 ng/mL (0.0-2.4); Troponin I <0.012 ng/mL (0.000-0.034)
[2018-02-26 16:15] VITALS: BP 143/82; PULSE 73; TEMP 98.2
== END 2018-02-26 16:21 | disposition home or self-care (01) ==
LOC: EC 13:27
DX: R55 Syncope and collapse (principal); D72.819 Decreased white blood cell count, unspecified; E83.42 Hypomagnesemia; F03.90 Unspecified dementia, unspecified severity, without behavioral disturbance, psychotic disturbance, mood disturbance, and anxiety; I10 Essential (primary) hypertension; G20 Parkinson's disease; F32.9 Major depressive disorder, single episode, unspecified; Z79.52 Long term (current) use of systemic steroids; Z79.899 Other long term (current) drug therapy; Z88.8 Allergy status to other drugs, medicaments and biological substances
CPT/HCPCS: 36415; 71046; 80053; 81003; 82550; 82553; 83735; 84484; 85025; 85610; 85730; 93005; 99285

== ENCOUNTER 2018-04-21 14:40 | Emergency (ER) | payer MEDICARE, OTHER ==
[2018-04-21 14:50] VITALS: BP 171/87; PULSE 73; RESP 16; TEMP 97.8
[2018-04-21] MEDS ORDERED: LIDOCAINE VISCOUS 2% 15 ML CUP MUCOUS MEM ONE (14:59)
--- NOTE | 2018-04-21 15:03 | ED ---
Wound/Laceration HPI - General Source: patient, family, RN notes reviewed Mode of arrival: wheelchair Limitations: no limitations <Daniel Dubon - Last Filed: 04/21/18 15:00> <Karsten Shaw - Last Filed: 04/21/18 15:25> - General Chief Complaint: Wound/Laceration Stated Complaint: Lip laceration Time Seen by Provider: 04/21/18 14:54 - History of Present Illness Initial Comments: 78-year-old female presents emergency department for lip laceration. Patient was attempting to go to the bathroom to sit down daughter was right there and states that she slipped and bumped her lip causing a laceration. She has an inner laceration. Ship in her tetanus no head injury no loss conscious. There is no other injuries or complaints. Patient was seen at urgent care sent here secondary to them stating they could not suture her inner lip. Patient has no active bleeding they stated actually seems to be improved at this time. (Daniel Dubon) - Related Data Home Medications Medication Instructions Recorded Confirmed Carbidopa-Levodopa 25-100 mg 2.5 tab PO QID 02/11/18 02/26/18 [Sinemet 25-100 mg] Fludrocortisone [Florinef] 0.1 mg PO DAILY 02/11/18 02/26/18 Ibuprofen 600 mg PO Q6H PRN 02/11/18 02/26/18 Memantine [Namenda] 5 mg PO BID@0800,1600 02/11/18 02/26/18 Propylene Glycol/Peg 400/Pf 1 drop BOTH EYES BID 02/11/18 02/26/18 [Systane 0.3-0.4% Eye Drops] Sertraline [Zoloft] 50 mg PO DAILY 02/11/18 02/26/18 rOPINIRole HCL [Requip] 0.25 mg PO TID@0800,1200,1800 02/11/18 02/26/18 H-Nuplazid 2 tab PO DAILY 02/26/18 02/26/18 Nitrofurantoin Macrocrystal 25 mg PO DAILY@199902/26/18 02/26/18 [Macrodantin] Previous Rx's Medication Instructions Recorded ALPRAZolam [Xanax] 0.25 mg PO TID PRN 3 Days #9 tab 02/12/18 Allergies Allergy/AdvReac Type Severity Reaction Status Date / Time adhesive tape Allergy Rash/Hives Verified 04/21/18 14:50 iodine Allergy Unknown Verified 04/21/18 14:50 Review of Systems ROS Other: All systems not noted in ROS Statement are negative. <Daniel Dubon - Last Filed: 04/21/18 15:00> ROS Other: All systems not noted in ROS Statement are negative. <Karsten Shaw - Last Filed: 04/21/18 15:25> ROS Statement: Those systems with pertinent positive or pertinent negative responses have been documented in the HPI. Past Medical History Past Medical History: Dementia, Hypertension Additional Past Medical History / Comment(s): parkinsons disease History of Any Multi-Drug Resistant Organisms: None Reported Past Surgical History: Unable to Obtain Additional Past Surgical History / Comment(s): Had one cataract removed (unsure which one). Colonoscopy, breast biopsy (negative for ca). Additional Past Anesthesia/Blood Transfusion Reaction / Comment(s): Pt. states with one surgery she threw up and has a hard time waking up from anesthesia - patient cannot remember much. Past Psychological History: Depression Smoking Status: Never smoker Past Alcohol Use History: None Reported Past Drug Use History: None Reported - Past Family History Sister(s) Family Medical History: Musculoskeletal Disorder Additional Family Medical History / Comment(s): One sister had MS, one sister has chronic UTIs. Brother(s) Additional Family Medical History / Comment(s): Essential tremors Father Additional Family Medical History / Comment(s): Had heart problems, been 50 years. <ShannonDaniel booth - Last Filed: 04/21/18 15:00> General Exam Limitations: no limitations General appearance: alert, in no apparent distress Head exam: Present: atraumatic, normocephalic, normal inspection Eye exam: Present: normal appearance, PERRL, EOMI. Absent: scleral icterus, conjunctival injection, periorbital swelling ENT exam: Present: mucous membranes moist. Absent: normal oropharynx (Inner lower lip there is a vertical 1 cm laceration) Neck exam: Present: normal inspection, full ROM. Absent: tenderness, meningismus, lymphadenopathy Respiratory exam: Present: normal lung sounds bilaterally. Absent: respiratory distress, wheezes, rales, rhonchi, stridor Cardiovascular Exam: Present: regular rate, normal rhythm, normal heart sounds. Absent: systolic murmur, diastolic murmur, rubs, gallop, clicks <Daniel Dubon - Last Filed: 04/21/18 15:00> Course <Daniel Dubon - Last Filed: 04/21/18 15:00> <Karsten Shaw - Last Filed: 04/21/18 15:25> Vital Signs 04/21/18 14:46 Temperature 97.8 F Pulse Rate 73 Respiratory 16 Rate Blood Pressure 171/87 O2 Sat by Pulse 100 Oximetry - Reevaluation(s) Reevaluation #1: 04/21/18 15:25 PA supervision: I personally saw and examined the patient and reviewed and agree with the PA findings including no diagnostic interpretations and treatment plans is written unless otherwise stated. Observe the examination and evaluation of the lip laceration and treatment. (Karsten Shaw) Procedures - Laceration Laceration #1 Consent Obtained: verbal consent Indication: laceration Site: lip Size (cm): 1 Description: linear Depth: simple, single layer Anesthetic Used: lidocaine 2% (Topical), without epi Pre-repair: wound explored, irrigated extensively, deep structures intact Type of Sutures: vicryl Size of Sutures: 5-0 Number of Sutures: 1 Technique: simple, interrupted Patient Tolerated Procedure: well, no complications <Daniel Dubon - Last Filed: 04/21/18 15:00> Medical Decision Making <Daniel Dubon - Last Filed: 04/21/18 15:00> <Karsten Shaw - Last Filed: 04/21/18 15:25> - Medical Decision Making 78-year-old female presented for inner lip laceration. One suture was placed to approximate the edges. Return parameters were discussed there is no head injury no other trauma. (Daniel Dubon) Disposition Is patient prescribed a controlled substance at d/c from ED?: No <Daniel Dubon - Last Filed: 04/21/18 15:00> <Karsten Shaw - Last Filed: 04/21/18 15:25> Clinical Impression: Lip laceration Disposition: HOME SELF-CARE Condition: Stable Instructions: Laceration (ED), Care For Your Absorbable Stitches (ED) Additional Instructions: Please return to the Emergency Department if symptoms worsen or any other concerns. Referrals: Kelin To MD [Primary Care Provider] - 1-2 days
== END 2018-04-21 15:30 | disposition home or self-care (01) ==
LOC: EC 14:40
DX: S01.511A Laceration without foreign body of lip, initial encounter (principal); G20 Parkinson's disease; F32.9 Major depressive disorder, single episode, unspecified; F03.90 Unspecified dementia, unspecified severity, without behavioral disturbance, psychotic disturbance, mood disturbance, and anxiety; Z79.52 Long term (current) use of systemic steroids; Z79.899 Other long term (current) drug therapy; Z91.048 Other nonmedicinal substance allergy status; W01.10XA Fall on same level from slipping, tripping and stumbling with subsequent striking against unspecified object, initial encounter; Y93.89 Activity, other specified
CPT/HCPCS: 12011; 99282

== ENCOUNTER 2018-06-27 15:56 | Emergency (ER) | payer MEDICARE, OTHER ==
[2018-06-27] MEDS ORDERED: SODIUM CHLORIDE 0.9% 500 ML IV STA (15:58)
--- NOTE | 2018-06-27 16:00 | ED ---
General Adult HPI - General Stated complaint: Syncope Time Seen by Provider: 06/27/18 15:57 Source: RN notes reviewed, old records reviewed - History of Present Illness Initial comments: 78-year-old female presents from detention for evaluation of momentary loss consciousness. According to EMS patient was unconscious for just seconds. She was sitting in her wheelchair, no fall or injury reported. Patient has past medical history of Parkinson's. She is on Xanax. No recent medication changes according to EMS. Patient was found by EMS to have a blood pressure 80 systolic. She was given 500 mL normal saline prior to arrival. Patient has no specific complaints. No chest pain. No history of cough or fever. No abdominal pain. No nausea vomiting or diarrhea. Patient does report that she has not been eating or drinking enough lately. - Related Data Home Medications Medication Instructions Recorded Confirmed Carbidopa-Levodopa 25-100 mg 2.5 tab PO QID 02/11/18 06/27/18 [Sinemet 25-100 mg] Fludrocortisone [Florinef] 0.1 mg PO DAILY 02/11/18 06/27/18 Ibuprofen 600 mg PO Q6H PRN 02/11/18 06/27/18 Memantine [Namenda] 5 mg PO BID@0800,1600 02/11/18 06/27/18 Propylene Glycol/Peg 400/Pf 1 drop BOTH EYES BID@0800,1800 02/11/18 06/27/18 [Systane 0.3-0.4% Eye Drops] Sertraline [Zoloft] 50 mg PO DAILY@0800 02/11/18 06/27/18 rOPINIRole HCL [Requip] 0.25 mg PO TID@0800,1200,1800 02/11/18 06/27/18 H-Nuplazid 2 tab PO DAILY 02/26/18 06/27/18 Nitrofurantoin Macrocrystal 25 mg PO DAILY@199902/26/18 06/27/18 [Macrodantin] ALPRAZolam [Xanax] 0.25 mg PO BID 06/27/18 06/27/18 Anti-Itch [place] 1 spray TRANSDERM QID PRN 06/27/18 06/27/18 C,E,Zinc,Copper 11/Qtope4t/Lut 2 cap PO DAILY 06/27/18 06/27/18 [Ocuvite Adult 50 Plus Softgel] Magnesium Hydroxide [Milk of 2,400 mg PO DAILY PRN 06/27/18 06/27/18 Magnesia] Midodrine HCl 5 mg PO TID@0800,1200,1800 06/27/18 06/27/18 Systane Complete 1 drop BOTH EYES TID@0800,1200,1600 06/27/18 06/27/18 risperiDONE [RisperDAL] 1 mg PO DAILY 06/27/18 06/27/18 Previous Rx's Medication Instructions Recorded Cephalexin [Keflex] 500 mg PO Q8HR #21 cap 06/27/18 Allergies Allergy/AdvReac Type Severity Reaction Status Date / Time adhesive tape Allergy Rash/Hives Verified 06/27/18 16:03 iodine Allergy Unknown Verified 06/27/18 16:03 Review of Systems ROS Statement: Those systems with pertinent positive or pertinent negative responses have been documented in the HPI. ROS Other: All systems not noted in ROS Statement are negative. Past Medical History Past Medical History: Dementia, Hypertension Additional Past Medical History / Comment(s): parkinsons disease History of Any Multi-Drug Resistant Organisms: None Reported Past Surgical History: Unable to Obtain Additional Past Surgical History / Comment(s): Had one cataract removed (unsure which one). Colonoscopy, breast biopsy (negative for ca). Additional Past Anesthesia/Blood Transfusion Reaction / Comment(s): Pt. states with one surgery she threw up and has a hard time waking up from anesthesia - patient cannot remember much. Past Psychological History: Depression Smoking Status: Never smoker Past Alcohol Use History: None Reported Past Drug Use History: None Reported - Past Family History Sister(s) Family Medical History: Musculoskeletal Disorder Additional Family Medical History / Comment(s): One sister had MS, one sister has chronic UTIs. Brother(s) Additional Family Medical History / Comment(s): Essential tremors Father Additional Family Medical History / Comment(s): Had heart problems, been 50 years. General Exam General appearance: alert, lethargic Head exam: Present: atraumatic, normocephalic Eye exam: Present: normal appearance, PERRL ENT exam: Present: mucous membranes dry Neck exam: Present: normal inspection. Absent: tenderness, meningismus Respiratory exam: Present: normal lung sounds bilaterally. Absent: respiratory distress, wheezes, rales Cardiovascular Exam: Present: regular rate, normal rhythm GI/Abdominal exam: Present: soft. Absent: distended, tenderness, guarding Extremities exam: Present: normal inspection, normal capillary refill Neurological exam: Present: alert, oriented X3, CN II-XII intact. Absent: motor sensory deficit Skin exam: Present: warm, dry, intact. Absent: cyanosis, diaphoretic Course Vital Signs 06/27/18 06/27/18 06/27/18 16:09 16:43 18:48 Temperature 97.7 F 99 F Pulse Rate 81 79 89 Respiratory 18 18 18 Rate Blood Pressure 152/72 167/91 171/78 O2 Sat by Pulse 97 97 98 Oximetry 06/27/18 19:21 Temperature Pulse Rate 89 Respiratory 18 Rate Blood Pressure 171/84 O2 Sat by Pulse 99 Oximetry EKG Findings - EKG Comments: EKG Findings:: EKG: Normal sinus rhythm, LVH, rate of 79, TN interval 168, QRS duration 78, QTC 422, QTC 43, no ST segment elevation Medical Decision Making - Medical Decision Making 78-year-old female presenting with syncopal episode, and low blood pressure by EMS. Patient's blood pressure does respond IV hydration. Clinically she appears very dehydrated. History of Parkinson's, and according to family she does not eat or drink well. She has history of recurrent UTI. EKG is nonischemic, normal sinus rhythm, head CT obtained, shows cerebral atrophy, and small vessel ischemia, no acute findings. Chest x-ray negative for focal pneumonia, normal CBC, normal CMP, normal lactic acid, troponin is negative, urinalysis shows trace ketones consistent with dehydration, 22 RBCs, 2 white blood cell counts and many bacteria, urine culture pending. Previous urine culture from May 2018 reviewed, this was E. coli which was sensitive to cephalosporins. Repeat culture is pending. Case is discussed at length with the patient's daughter, she is comfortable with discharge and outpatient follow- up at this time. She will encourage oral hydration. Take antibiotics. Return with worsening or changing symptoms. - Lab Data Result diagrams: 06/27/18 16:44 06/27/18 17:41 Lab Results 06/27/18 06/27/18 06/27/18 Range/Units 16:44 16:44 16:44 WBC 5.7 (3.8-10.6) k/uL RBC 4.12 (3.80-5.40) m/uL Hgb 12.3 (11.4-16.0) gm/dL Hct 36.6 (34.0-46.0) % MCV 89.0 (80.0-100.0) fL MCH 29.9 (25.0-35.0) pg MCHC 33.6 (31.0-37.0) g/dL RDW 13.3 (11.5-15.5) % Plt Count 166 (150-450) k/uL Neutrophils % 58 % Lymphocytes % 27 % Monocytes % 9 % Eosinophils % 3 % Basophils % 1 % Neutrophils # 3.3 (1.3-7.7) k/uL Lymphocytes # 1.5 (1.0-4.8) k/uL Monocytes # 0.5 (0-1.0) k/uL Eosinophils # 0.2 (0-0.7) k/uL Basophils # 0.0 (0-0.2) k/uL PT 10.9 (9.0-12.0) sec INR 1.1 (<1.2) APTT 27.4 (22.0-30.0) sec Sodium (137-145) mmol/L Potassium (3.5-5.1) mmol/L Chloride (98-107) mmol/L Carbon Dioxide (22-30) mmol/L Anion Gap mmol/L BUN (7-17) mg/dL Creatinine (0.52-1.04) mg/dL Est GFR (CKD-EPI)AfAm (>60 ml/min/1.73 sqM) Est GFR (CKD-EPI)NonAf (>60 ml/min/1.73 sqM) Glucose (74-99) mg/dL Plasma Lactic Acid Zi 1.8 (0.7-2.0) mmol/L Calcium (8.4-10.2) mg/dL Magnesium (1.6-2.3) mg/dL Total Bilirubin (0.2-1.3) mg/dL AST (14-36) U/L ALT (9-52) U/L Alkaline Phosphatase (38-126) U/L Total Creatine Kinase (30-135) U/L CK-MB (CK-2) (0.0-2.4) ng/mL CK-MB (CK-2) Rel Index Troponin I (0.000-0.034) ng/mL Total Protein (6.3-8.2) g/dL Albumin (3.5-5.0) g/dL Urine Color Urine Appearance (Clear) Urine pH (5.0-8.0) Ur Specific [place] (1.001-1.035) Urine Protein (Negative) Urine Glucose (UA) (Negative) Urine Ketones (Negative) Urine Blood (Negative) Urine Nitrite (Negative) Urine Bilirubin (Negative) Urine Urobilinogen (<2.0) mg/dL Ur Leukocyte Esterase (Negative) Urine RBC (0-5) /hpf Urine WBC (0-5) /hpf Urine Bacteria (None) /hpf Hyaline Casts (0-2) /lpf Urine Mucus (None) /hpf 06/27/18 06/27/18 06/27/18 Range/Units 17:41 17:41 Unknown WBC (3.8-10.6) k/uL RBC (3.80-5.40) m/uL Hgb (11.4-16.0) gm/dL Hct (34.0-46.0) % MCV (80.0-100.0) fL MCH (25.0-35.0) pg MCHC (31.0-37.0) g/dL RDW (11.5-15.5) % Plt Count (150-450) k/uL Neutrophils % % Lymphocytes % % Monocytes % % Eosinophils % % Basophils % % Neutrophils # (1.3-7.7) k/uL Lymphocytes # (1.0-4.8) k/uL Monocytes # (0-1.0) k/uL Eosinophils # (0-0.7) k/uL Basophils # (0-0.2) k/uL PT (9.0-12.0) sec INR (<1.2) APTT (22.0-30.0) sec Sodium 143 (137-145) mmol/L Potassium 3.5 (3.5-5.1) mmol/L Chloride 105 (98-107) mmol/L Carbon Dioxide 28 (22-30) mmol/L Anion Gap 10 mmol/L BUN 29 H (7-17) mg/dL Creatinine 0.91 (0.52-1.04) mg/dL Est GFR (CKD-EPI)AfAm 69 (>60 ml/min/1.73 sqM) Est GFR (CKD-EPI)NonAf 60 (>60 ml/min/1.73 sqM) Glucose 98 (74-99) mg/dL Plasma Lactic Acid Zi (0.7-2.0) mmol/L Calcium 9.0 (8.4-10.2) mg/dL Magnesium 1.7 (1.6-2.3) mg/dL Total Bilirubin 0.6 (0.2-1.3) mg/dL AST 19 (14-36) U/L ALT 13 (9-52) U/L Alkaline Phosphatase 110 (38-126) U/L Total Creatine Kinase 23 L (30-135) U/L CK-MB (CK-2) 0.2 (0.0-2.4) ng/mL CK-MB (CK-2) Rel Index 0.9 Troponin I <0.012 (0.000-0.034) ng/mL Total Protein 6.7 (6.3-8.2) g/dL Albumin 3.8 (3.5-5.0) g/dL Urine Color Yellow Urine Appearance Cloudy H (Clear) Urine pH 6.5 (5.0-8.0) Ur Specific [place] 1.016 (1.001-1.035) Urine Protein Trace H (Negative) Urine Glucose (UA) Negative (Negative) Urine Ketones Trace H (Negative) Urine Blood Small H (Negative) Urine Nitrite Negative (Negative) Urine Bilirubin Negative (Negative) Urine Urobilinogen 3.0 (<2.0) mg/dL Ur Leukocyte Esterase Small H (Negative) Urine RBC 22 H (0-5) /hpf Urine WBC 2 (0-5) /hpf Urine Bacteria Many H (None) /hpf Hyaline Casts 4 H (0-2) /lpf Urine Mucus Rare H (None) /hpf Disposition Clinical Impression: UTI (urinary tract infection), Dehydration Disposition: HOME SELF-CARE Condition: Fair Instructions: Urinary Tract Infection in Women (ED), Dehydration (ED) Prescriptions: Cephalexin [Keflex] 500 mg PO Q8HR #21 cap Is patient prescribed a controlled substance at d/c from ED?: No Referrals: Kelin To MD [Primary Care Provider] - 1-2 days Time of Disposition: 20:20
[2018-06-27 17:02] LABS: Basophils % (A) 1 %; Eosinophils # (A) 0.2 k/uL (0-0.7); Eosinophils % (A) 3 %; HCT 36.6 % (34.0-46.0); HGB 12.3 gm/dL (11.4-16.0); Lymphocytes # (A) 1.5 k/uL (1.0-4.8); Lymphocytes % (A) 27 %; MCH 29.9 pg (25.0-35.0); MCHC 33.6 g/dL (31.0-37.0); Mean Platelet Volume 7.4; Monocytes # (A) 0.5 k/uL (0-1.0); Monocytes % (A) 9 %; Neutrophils # (A) 3.3 k/uL (1.3-7.7); Neutrophils % (A) 58 %; Platelet Count 166 k/uL (150-450); RBC 4.12 m/uL (3.80-5.40); RDW 13.3 % (11.5-15.5); WBC 5.7 k/uL (3.8-10.6)
--- NOTE | 2018-06-27 17:17 | CT ---
EXAMINATION TYPE: CT brain wo con DATE OF EXAM: 06/27/2018 COMPARISON: 02/11/2018 HISTORY: syncope CT DLP: 1097 mGycm Automated exposure control for dose reduction was used. FINDINGS: There is cerebral cortical atrophy. There is no mass effect nor midline shift. There is no sign of in tracranial hemorrhage. Sella turcica appears normal. Calvarium is intact. IMPRESSION: CEREBRAL ATROPHY. NO ACUTE INTRACRANIAL ABNORMALITY. MINIMAL CHRONIC SMALL VESSEL ISCHEMIA. NO CHANGE .
--- NOTE | 2018-06-27 17:18 | XR ---
EXAMINATION TYPE: XR chest 2V DATE OF EXAM: 06/27/2018 COMPARISON: 02/26/2018 HISTORY: Altered mental status TECHNIQUE: Frontal and lateral views of the chest are obtained. FINDINGS: There is no heart failure nor confluent pneumonic infiltrate. Costophrenic angles are tristen r. Thoracic aorta is atheromatous. There is a mild thoracolumbar kyphotic curvature. IMPRESSION: No active cardiopulmonary disease. No change.
[2018-06-27 17:20] LABS: INR 1.1 (<1.2); Partial Thromboplastin Time 27.4 sec (22.0-30.0); Prothrombin Time 10.9 sec (9.0-12.0)
[2018-06-27 17:42] LABS: Appearance,Urine Cloudy (Clear); Bacteria,Urine Many /hpf; Bilirubin,Urine Negative (Negative); Blood,Urine Small (Negative); Color,Urine Yellow; Glucose,Urine (UA) Negative (Negative); Hyaline Casts,Urine 4 /lpf (0-2); Ketones,Urine Trace (Negative); Leukocyte Esterase,Urine Small (Negative); Mucus,Urine Rare /hpf; Nitrite,Urine Negative (Negative); PH, Urine 6.5 (5.0-8.0); Protein,Urine Trace (Negative); RBC,Urine 22 /hpf (0-5); Specific Gravity,Urine 1.016 (1.001-1.035); WBC,Urine 2 /hpf (0-5)
[2018-06-27 18:05] LABS: Albumin 3.8 g/dL (3.5-5.0); Magnesium 1.7 mg/dL (1.6-2.3); Potassium 3.5 mmol/L (3.5-5.1); Total Bilirubin 0.6 mg/dL (0.2-1.3); Total Protein 6.7 g/dL (6.3-8.2)
[2018-06-27 18:14] LABS: Creatine Kinase 23 U/L (30-135)
[2018-06-27 18:27] LABS: Creatine Kinase MB 0.2 ng/mL (0.0-2.4); Troponin I <0.012 ng/mL (0.000-0.034)
[2018-06-27 20:52] VITALS: BP 169/93; PULSE 88; RESP 20; TEMP 98.4
== END 2018-06-27 20:54 | disposition home or self-care (01) ==
LOC: EC 15:56
DX: N39.0 Urinary tract infection, site not specified (principal); E86.0 Dehydration; R55 Syncope and collapse; G31.9 Degenerative disease of nervous system, unspecified; I99.8 Other disorder of circulatory system; F03.90 Unspecified dementia, unspecified severity, without behavioral disturbance, psychotic disturbance, mood disturbance, and anxiety; I10 Essential (primary) hypertension; G20 Parkinson's disease; F32.9 Major depressive disorder, single episode, unspecified; Z79.52 Long term (current) use of systemic steroids; Z79.899 Other long term (current) drug therapy; Z91.048 Other nonmedicinal substance allergy status
CPT/HCPCS: 36415; 70450; 71046; 80053; 81001; 82550; 82553; 83605; 83735; 84484; 85025; 85610; 85730; 87040; 87086; 93005; 96360; 96361; 99285

== ENCOUNTER 2019-02-13 15:36 | Emergency (ER) | payer MEDICARE, OTHER ==
[2019-02-13 15:54] VITALS: BP 135/77; PULSE 82; RESP 16; TEMP 97.9
[2019-02-13] MEDS ORDERED: LIDOCAINE 1% INJ 10MG/ML (20 ML MDV) SQ ONE (16:16)
[2019-02-13] MEDS ORDERED: WATER FOR IRRIG, STERILE 1,000 ML BTL IRRIGATION ONE (16:30)
--- NOTE | 2019-02-13 17:19 | ED ---
General Adult HPI - General Chief complaint: Wound/Laceration Stated complaint: LEFT LEG LACERATION Time Seen by Provider: 02/13/19 15:57 Source: family Mode of arrival: wheelchair Limitations: no limitations - History of Present Illness Initial comments: Patient is an 79-year-old female with a history of Parkinson's is presenting to the emergency department after a fall. She was brought here by daughter who works at the same nursing facility where the patient loose. Patient states that she was walking to her recliner chair when she tripped and fell. Patient denies losing consciousness. Patient was able to get up by herself. Patient reports pain in her left lower leg. Patient was not given anything to control the pain. Daughter reports that the patient does have history of frequent falls. - Related Data Home Medications Medication Instructions Recorded Confirmed Carbidopa-Levodopa 25-100 mg 2.5 tab PO QID 02/11/18 06/27/18 [Sinemet 25-100 mg] Fludrocortisone [Florinef] 0.1 mg PO DAILY 02/11/18 06/27/18 Memantine [Namenda] 5 mg PO BID@0800,1600 02/11/18 06/27/18 Propylene Glycol/Peg 400/Pf 1 drop BOTH EYES BID@0800,1800 02/11/18 06/27/18 [Systane 0.3-0.4% Eye Drops] Sertraline [Zoloft] 50 mg PO DAILY@0800 02/11/18 06/27/18 rOPINIRole HCL [Requip] 0.25 mg PO TID@0800,1200,1800 02/11/18 06/27/18 ALPRAZolam [Xanax] 0.25 mg PO BID 06/27/18 06/27/18 Anti-Itch [place] 1 spray TRANSDERM QID PRN 06/27/18 06/27/18 C,E,Zinc,Copper 11/Coxog0v/Lut 2 cap PO DAILY 06/27/18 06/27/18 [Ocuvite Adult 50 Plus Softgel] Midodrine HCl 5 mg PO TID@0800,1200,1800 06/27/18 06/27/18 Systane Complete 1 drop BOTH EYES TID@0800,1200,1600 06/27/18 06/27/18 risperiDONE [RisperDAL] 1 mg PO DAILY 06/27/18 06/27/18 Alendronate Sodium [Fosamax] 70 mg PO Q7D 02/13/19 02/13/19 Pimavanserin Tartrate [Nuplazid] 34 mg PO DAILY 02/13/19 02/13/19 Allergies Allergy/AdvReac Type Severity Reaction Status Date / Time adhesive tape Allergy Rash/Hives Verified 02/13/19 16:35 iodine Allergy Unknown Verified 02/13/19 16:35 Review of Systems ROS Statement: Those systems with pertinent positive or pertinent negative responses have been documented in the HPI. ROS Other: All systems not noted in ROS Statement are negative. Past Medical History Past Medical History: Dementia, Hypertension Additional Past Medical History / Comment(s): parkinsons disease History of Any Multi-Drug Resistant Organisms: None Reported Past Surgical History: Unable to Obtain Additional Past Surgical History / Comment(s): Had one cataract removed (unsure which one). Colonoscopy, breast biopsy (negative for ca). Additional Past Anesthesia/Blood Transfusion Reaction / Comment(s): Pt. states with one surgery she threw up and has a hard time waking up from anesthesia - patient cannot remember much. Past Psychological History: Depression Smoking Status: Never smoker Past Alcohol Use History: None Reported Past Drug Use History: None Reported - Past Family History Sister(s) Family Medical History: Musculoskeletal Disorder Additional Family Medical History / Comment(s): One sister had MS, one sister has chronic UTIs. Brother(s) Additional Family Medical History / Comment(s): Essential tremors Father Additional Family Medical History / Comment(s): Had heart problems, been 50 years. General Exam Limitations: no limitations General appearance: alert, in no apparent distress Head exam: Present: atraumatic, normocephalic, normal inspection, other (Mild abrasions lower lip.) Eye exam: Present: normal appearance, PERRL, EOMI Pupils: Present: normal accommodation ENT exam: Present: normal exam, mucous membranes moist Neck exam: Present: normal inspection Respiratory exam: Present: normal lung sounds bilaterally. Absent: respiratory distress, wheezes, rales, rhonchi Cardiovascular Exam: Present: regular rate, normal rhythm, normal heart sounds Left Hip exam: Present: normal inspection, full ROM Upper Leg exam: Present: normal inspection, full ROM Knee exam: Present: normal inspection, full ROM Lower Leg exam: Present: tenderness (Abdomen palpation), laceration (1 cm). Absent: abrasion Ankle exam: Present: normal inspection, full ROM. Absent: abrasion, laceration Gait: not tested/not observed (Limited due to to the Parkinson's.) Back exam: Present: normal inspection, full ROM Neurological exam: Present: alert, oriented X3 Psychiatric exam: Present: normal affect, normal mood Skin exam: Present: warm Course Vital Signs 02/13/19 15:52 Temperature 97.9 F Pulse Rate 82 Respiratory 16 Rate Blood Pressure 135/77 O2 Sat by Pulse 98 Oximetry Medical Decision Making - Medical Decision Making Patient is an 79-year-old female presents to emergency department after fall. The 1.5; laceration was corrected with 3 nylon sutures. Patient is advised to return to emergency department at 10 days for suture removal. Patient advised to follow-up with primary care. Patient advised return to the emergency department if symptoms worsen. Case discussed with physician. Disposition Clinical Impression: Laceration Disposition: HOME SELF-CARE Condition: Stable Instructions (If sedation given, give patient instructions): Laceration (DC) Additional Instructions: Please change the gauze in 24 hours. Please return to emergency department if symptoms worsen. Please refer to 10 days for suture removal. Is patient prescribed a controlled substance at d/c from ED?: No Referrals: Kelin To MD [Primary Care Provider] - 1-2 days Time of Disposition: 17:21
== END 2019-02-13 17:51 | disposition home or self-care (01) ==
LOC: EC 15:36
DX: S81.812A Laceration without foreign body, left lower leg, initial encounter (principal); S00.511A Abrasion of lip, initial encounter; I10 Essential (primary) hypertension; G20 Parkinson's disease; F02.80 Dementia in other diseases classified elsewhere, unspecified severity, without behavioral disturbance, psychotic disturbance, mood disturbance, and anxiety; F32.9 Major depressive disorder, single episode, unspecified; Z79.899 Other long term (current) drug therapy; Z88.8 Allergy status to other drugs, medicaments and biological substances; Z91.048 Other nonmedicinal substance allergy status; W01.0XXA Fall on same level from slipping, tripping and stumbling without subsequent striking against object, initial encounter; Y92.129 Unspecified place in nursing home as the place of occurrence of the external cause
CPT/HCPCS: 99282; 12001; J2001

== ENCOUNTER 2019-09-01 03:57 | Emergency (ER) | payer MEDICARE, OTHER ==
[2019-09-01 04:05] VITALS: RESP 18; TEMP 98.7
--- NOTE | 2019-09-01 04:42 | ED ---
Fall HPI - General Chief Complaint: Fall Stated Complaint: Fall Time Seen by Provider: 09/01/19 04:30 Source: patient, EMS Mode of arrival: EMS - History of Present Illness MD Complaint: fall -: hour(s) Fall From: wheelchair When Fall Occurred: 1-3 hours [employer] Fall Witnessed: no Place Fall Occurred: home Loss of Consciousness: none Prolonged Down Time?: no Symptoms Prior to Fall: none Location: face Context: history of frequent falls - Related Data Home Medications Medication Instructions Recorded Confirmed Carbidopa-Levodopa 25-100 mg 2.5 tab PO QID 02/11/18 02/13/19 [Sinemet 25-100 mg] Fludrocortisone [Florinef] 0.1 mg PO DAILY 02/11/18 02/13/19 Memantine [Namenda] 5 mg PO BID@0800,1600 02/11/18 02/13/19 Propylene Glycol/Peg 400/Pf 1 drop BOTH EYES BID@0800,1800 02/11/18 02/13/19 [Systane 0.3-0.4% Eye Drops] Sertraline [Zoloft] 50 mg PO DAILY@0800 02/11/18 02/13/19 rOPINIRole HCL [Requip] 0.25 mg PO TID@0800,1200,1800 02/11/18 02/13/19 ALPRAZolam [Xanax] 0.25 mg PO BID 06/27/18 02/13/19 Anti-Itch [place] 1 spray TRANSDERM QID PRN 06/27/18 02/13/19 C,E,Zinc,Copper 11/Gsuga1t/Lut 2 cap PO DAILY 06/27/18 02/13/19 [Ocuvite Adult 50 Plus Softgel] Midodrine HCl 5 mg PO TID@0800,1200,1800 06/27/18 02/13/19 Systane Complete 1 drop BOTH EYES TID@0800,1200,1600 06/27/18 02/13/19 risperiDONE [RisperDAL] 1 mg PO DAILY 06/27/18 02/13/19 Alendronate Sodium [Fosamax] 70 mg PO Q7D 02/13/19 02/13/19 Pimavanserin Tartrate [Nuplazid] 34 mg PO DAILY 05/08/19 05/08/19 Allergies Allergy/AdvReac Type Severity Reaction Status Date / Time adhesive tape Allergy Rash/Hives Verified 09/01/19 04:06 iodine Allergy Unknown Verified 09/01/19 04:06 Review of Systems ROS Statement: Those systems with pertinent positive or pertinent negative responses have been documented in the HPI. ROS Other: All systems not noted in ROS Statement are negative. Eyes: Denies: eye pain, vision change ENT: Denies: ear pain, epistaxis Respiratory: Denies: cough, dyspnea Cardiovascular: Denies: chest pain, syncope Gastrointestinal: Denies: abdominal pain, vomiting Neurological: Denies: headache Hematological/Lymphatic: Denies: easy bleeding Past Medical History Past Medical History: Dementia, Hypertension Additional Past Medical History / Comment(s): parkinsons disease History of Any Multi-Drug Resistant Organisms: None Reported Past Surgical History: Unable to Obtain Additional Past Surgical History / Comment(s): Had one cataract removed (unsure which one). Colonoscopy, breast biopsy (negative for ca). Additional Past Anesthesia/Blood Transfusion Reaction / Comment(s): Pt. states with one surgery she threw up and has a hard time waking up from anesthesia - patient cannot remember much. Past Psychological History: Depression Smoking Status: Never smoker Past Alcohol Use History: None Reported Past Drug Use History: None Reported - Past Family History Sister(s) Family Medical History: Musculoskeletal Disorder Additional Family Medical History / Comment(s): One sister had MS, one sister has chronic UTIs. Brother(s) Additional Family Medical History / Comment(s): Essential tremors Father Additional Family Medical History / Comment(s): Had heart problems, been 50 years. General Exam Limitations: no limitations General appearance: alert, in no apparent distress Head exam: Present: normocephalic Eye exam: Present: PERRL, EOMI, periorbital swelling, periorbital tenderness (Left facial swelling and tenderness), other (There is a superficial skin tear at the margin of the left lower lid.). Absent: scleral icterus, conjunctival injection, nystagmus ENT exam: Present: normal oropharynx Neck exam: Present: normal inspection, full ROM. Absent: tenderness Respiratory exam: Present: normal lung sounds bilaterally. Absent: respiratory distress, wheezes, rales, rhonchi, stridor, chest wall tenderness Cardiovascular Exam: Present: regular rate, normal rhythm, normal heart sounds. Absent: systolic murmur, diastolic murmur, rubs, gallop Back exam: Present: normal inspection. Absent: vertebral tenderness Neurological exam: Present: alert, oriented X3, CN II-XII intact. Absent: motor sensory deficit Course Vital Signs 09/01/19 09/01/19 04:02 06:21 Temperature 98.7 F Pulse Rate 80 67 Respiratory 18 18 Rate Blood Pressure 173/102 143/88 O2 Sat by Pulse 98 98 Oximetry Medical Decision Making - Medical Decision Making Further examination of the skin tear reveals that there is no thickness to the tissue it is not able to be approximated with suture or glue due to the proximity to the margin. Disposition Clinical Impression: Fall, Head injury, Skin tear Disposition: HOME SELF-CARE Condition: Good Instructions (If sedation given, give patient instructions): Fall Prevention for Older Adults (ED), Head Injury (ED), Skin Tear (ED) Is patient prescribed a controlled substance at d/c from ED?: No Referrals: None,Stated [Primary Care Provider] - 1-2 days
--- NOTE | 2019-09-01 05:09 | CT ---
EXAMINATION TYPE: CT brain reilly hamlin con DATE OF EXAM: 09/01/2019 COMPARISON: CT brain 06/27/2018 HISTORY: fall CT DLP: 600.3 mGycm Automated exposure control for dose reduction was used. TECHNIQUE: CT scan of the head and cervical spine are performed without contrast. FINDINGS: There is cerebral cortical atrophy. There is no mass effect nor midline shift. There is n o sign of intracranial hemorrhage. The calvarium is intact. Cervical vertebra have normal alignment. Disc spaces are normal for age. Facet joints are intact. The re is minor spurring of the endplates in the mid cervical spine. The skull base is intact. There is n o evidence of cervical spine fracture. IMPRESSION: Cerebral atrophy. No acute intracranial abnormality. No change. Negative CT scan of the cervical spine. No fracture.
--- NOTE | 2019-09-01 05:11 | CT ---
EXAMINATION TYPE: CT orbits wo con DATE OF EXAM: 09/01/2019 COMPARISON: None HISTORY: fall CT DLP: 214.6 mGycm Automated exposure control for dose reduction was used. FINDINGS: The maxilla is intact. Nasal bone appears intact. Zygomatic arches appear normal. Orbital margins are intact. There is no evidence of a blowout fracture. There is fairly normal aeration of the paranasal sinuses. There is no evidence of retro-orbital mass. IMPRESSION: NEGATIVE CT SCAN OF THE ORBITS. NO FRACTURE. CEREBRAL ATROPHY NOTED.
[2019-09-01 08:12] VITALS: BP 148/79; PULSE 68
== END 2019-09-01 08:12 | disposition home or self-care (01) ==
LOC: EC 03:57
DX: S01.112A Laceration without foreign body of left eyelid and periocular area, initial encounter (principal); G20 Parkinson's disease; F02.80 Dementia in other diseases classified elsewhere, unspecified severity, without behavioral disturbance, psychotic disturbance, mood disturbance, and anxiety; F32.9 Major depressive disorder, single episode, unspecified; I10 Essential (primary) hypertension; Z79.899 Other long term (current) drug therapy; Z91.048 Other nonmedicinal substance allergy status; Z91.041 Radiographic dye allergy status; W05.0XXA Fall from non-moving wheelchair, initial encounter; Z91.81 History of falling; Y92.009 Unspecified place in unspecified non-institutional (private) residence as the place of occurrence of the external cause
CPT/HCPCS: 70450; 70480; 72125; 99284

== ENCOUNTER 2020-04-25 07:43 | Emergency (ER) | payer MEDICARE, OTHER ==
[2020-04-25 07:53] VITALS: TEMP 98
--- NOTE | 2020-04-25 07:53 | ED ---
Fall HPI <Daniel Dubon Jason - Last Filed: 04/25/20 08:57> - History of Present Illness MD Complaint: fall <ColinKarsten - Last Filed: 04/25/20 09:12> - General Stated Complaint: fall/head lac Time Seen by Provider: 04/25/20 07:43 - History of Present Illness Initial Comments: This 80-year-old female history dementia who apparently was going down her breakfast today and wheelchair when she went to transfer and tripped over the foot rest. She struck the left side of her head against a fireplace mantle. She complains of neck pain. She is a poor historian due to her dementia. He seem to be awake and alert in no evidence of any loss of function to her upper or lower extremities per paramedics. She did have a small laceration apparently to the left side of her ear. No other complaints or modifying factors. (ColinKarsten) - Related Data Home Medications Medication Instructions Recorded Confirmed Carbidopa-Levodopa 25-100 mg 2.5 tab PO QID 02/11/18 02/13/19 [Sinemet 25-100 mg] Fludrocortisone [Florinef] 0.1 mg PO DAILY 02/11/18 02/13/19 Memantine [Namenda] 5 mg PO BID@0800,1600 02/11/18 02/13/19 Propylene Glycol/Peg 400/Pf 1 drop BOTH EYES BID@0800,1800 02/11/18 02/13/19 [Systane 0.3-0.4% Eye Drops] Sertraline [Zoloft] 50 mg PO DAILY@0800 02/11/18 02/13/19 rOPINIRole HCL [Requip] 0.25 mg PO TID@0800,1200,1800 02/11/18 02/13/19 ALPRAZolam [Xanax] 0.25 mg PO BID 06/27/18 02/13/19 Anti-Itch [place] 1 spray TRANSDERM QID PRN 06/27/18 02/13/19 C,E,Zinc,Copper 11/Hvvnj6v/Lut 2 cap PO DAILY 06/27/18 02/13/19 [Ocuvite Adult 50 Plus Softgel] Midodrine HCl 5 mg PO TID@0800,1200,1800 06/27/18 02/13/19 Systane Complete 1 drop BOTH EYES TID@0800,1200,1600 06/27/18 02/13/19 risperiDONE [RisperDAL] 1 mg PO DAILY 06/27/18 02/13/19 Alendronate Sodium [Fosamax] 70 mg PO Q7D 02/13/19 02/13/19 Pimavanserin Tartrate [Nuplazid] 34 mg PO DAILY 02/13/19 02/13/19 Allergies Allergy/AdvReac Type Severity Reaction Status Date / Time adhesive tape Allergy Rash/Hives Verified 04/25/20 07:48 iodine Allergy Unknown Verified 04/25/20 07:48 Review of Systems ROS Other: All systems not noted in ROS Statement are negative. <Daniel Dubon - Last Filed: 04/25/20 08:57> ROS Other: All systems not noted in ROS Statement are negative. Limitations: ROS unobtainable due to patients medical condition <Karsten Shaw - Last Filed: 04/25/20 09:12> ROS Statement: Those systems with pertinent positive or pertinent negative responses have been documented in the HPI. Past Medical History Past Medical History: Dementia, Hypertension Additional Past Medical History / Comment(s): parkinsons disease History of Any Multi-Drug Resistant Organisms: None Reported Past Surgical History: Unable to Obtain Additional Past Surgical History / Comment(s): Had one cataract removed (unsure which one). Colonoscopy, breast biopsy (negative for ca). Additional Past Anesthesia/Blood Transfusion Reaction / Comment(s): Pt. states with one surgery she threw up and has a hard time waking up from anesthesia - patient cannot remember much. Past Psychological History: Depression Past Alcohol Use History: None Reported Past Drug Use History: None Reported - Past Family History Sister(s) Family Medical History: Musculoskeletal Disorder Additional Family Medical History / Comment(s): One sister had MS, one sister has chronic UTIs. Brother(s) Additional Family Medical History / Comment(s): Essential tremors Father Additional Family Medical History / Comment(s): Had heart problems, been 50 years. <Karsten Shaw - Last Filed: 04/25/20 09:12> General Exam Limitations: altered mental status General appearance: alert, anxious Head exam: Present: normocephalic Eye exam: Present: normal appearance, PERRL, EOMI. Absent: scleral icterus, conjunctival injection, periorbital swelling ENT exam: Present: normal exam, mucous membranes moist Neck exam: Present: normal inspection, other (Cervical collar in place no stridor JVD or bruits) Respiratory exam: Present: normal lung sounds bilaterally. Absent: respiratory distress, wheezes, rales, rhonchi, stridor Cardiovascular Exam: Present: regular rate, normal rhythm, normal heart sounds. Absent: systolic murmur, diastolic murmur, rubs, gallop, clicks GI/Abdominal exam: Present: soft, normal bowel sounds. Absent: distended, tenderness, guarding, rebound, rigid Extremities exam: Present: normal inspection, full ROM, normal capillary refill. Absent: tenderness, pedal edema, joint swelling, calf tenderness Back exam: Present: normal inspection Neurological exam: Present: altered, CN II-XII intact. Absent: motor sensory deficit Psychiatric exam: Present: anxious Skin exam: Present: warm, dry, normal color. Absent: intact (As above) <Karsten Shaw - Last Filed: 04/25/20 09:12> - General Exam Comments Initial Comments: Is a well-developed sec appearing female who is awake alert but confused. She does have a cervical collar on. (Karsten Shaw) Course Vital Signs 04/25/20 04/25/20 07:48 08:14 Temperature 98 F Pulse Rate 73 Respiratory 18 Rate Blood Pressure 139/101 157/70 O2 Sat by Pulse 97 Oximetry Procedures - Laceration Laceration #1 Consent Obtained: verbal consent Indication: laceration Site: other (Left posterior auricular region) Size (cm): 2 Description: linear Depth: simple, single layer Pre-repair: wound explored, irrigated extensively, deep structures intact Type of Sutures: other (exofin dermal adhesive) Patient Tolerated Procedure: well, no complications <Daniel Dubon - Last Filed: 04/25/20 08:57> Medical Decision Making - Radiology Data Radiology results: report reviewed (I did review the imaging and report no evidence of acute findings evidence of degenerative cervical disease.), image reviewed <Karsten Shaw - Last Filed: 04/25/20 09:12> - Medical Decision Making Patient did have a small laceration was repaired. Patient will be discharged back to long-term. (Karsten Shaw) Disposition Time of Disposition: 08:58 <Daniel Dubon - Last Filed: 04/25/20 08:57> Is patient prescribed a controlled substance at d/c from ED?: No <Karsten Shaw - Last Filed: 04/25/20 09:12> Clinical Impression: Fall, Laceration, Head injury, Cervical strain Disposition: HOME SELF-CARE Condition: Good Instructions (If sedation given, give patient instructions): Head Injury (ED), Skin Adhesive Care (ED), Cervical Strain (ED) Additional Instructions: Please return to the Emergency Department if symptoms worsen or any other concerns. Referrals: Kelin To MD [Primary Care Provider] - 1-2 days
--- NOTE | 2020-04-25 08:43 | CT ---
EXAMINATION TYPE: CT brain ubaldoine yakelin con DATE OF EXAM: 04/25/2020 COMPARISON: Previous study dated 09/01/2019 HISTORY: Fall CT DLP: 1240.8 mGycm Automated exposure control for dose reduction was used. TECHNIQUE: CT scan of the head and cervical spine are performed without contrast. FINDINGS: BRAIN: There are generalized changes of sulcal prominence and ventriculomegaly, compatible with atrop hic change. There is diffuse periventricular white matter lucency, compatible small vessel ischemic c hange. There is no acute focal lesion, mass effect or midline shift identified. I do not see evidence of intracranial blood. Visualized portions of the paranasal sinuses and mastoids are clear. The bony calvarium is intact. IMPRESSION: 1. NO ACUTE INTRACRANIAL ABNORMALITY. 2. DEGENERATIVE CHANGE. CERVICAL SPINE: Visualized portions of the lungs are clear. The proximal transverse thoracic aorta is aneurysmal measuring 3.6 cm. The proximal descending thoracic aorta is normal in caliber. Prevertebr al soft tissues are otherwise unremarkable. Vertebral body height and alignment are maintained. Atlantoaxial relationships are normal. There is d egenerative disc disease and hypertrophic spondylosis present at C5-6 and C6-7. There is mild uncover tebral joint disease present at these levels. There is facet arthropathy present bilaterally at C4-5 and to a lesser extent C5-6. There is a stable 5.7 mm sclerotic focus in the posterior vertebral of C 2. No fractures identified. No definite protrusion is seen. IMPRESSION: 1. NO ACUTE OSSEOUS LESION. 2. DEGENERATIVE CHANGE. 3. 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
[2020-04-25] MEDS ORDERED: TOPICAL SKIN ADHESIVE 1 EACH AMP TOPICAL ONE (08:48)
[2020-04-25 09:49] VITALS: BP 162/74; PULSE 71; RESP 16
== END 2020-04-25 09:45 | disposition home or self-care (01) ==
LOC: EC 07:43
DX: S01.312A Laceration without foreign body of left ear, initial encounter (principal); S09.90XA Unspecified injury of head, initial encounter; S16.1XXA Strain of muscle, fascia and tendon at neck level, initial encounter; G20 Parkinson's disease; F32.9 Major depressive disorder, single episode, unspecified; F02.80 Dementia in other diseases classified elsewhere, unspecified severity, without behavioral disturbance, psychotic disturbance, mood disturbance, and anxiety; Z79.899 Other long term (current) drug therapy; Z79.51 Long term (current) use of inhaled steroids; Z91.041 Radiographic dye allergy status; Z91.048 Other nonmedicinal substance allergy status; W01.198A Fall on same level from slipping, tripping and stumbling with subsequent striking against other object, initial encounter; Y92.008 Other place in unspecified non-institutional (private) residence as the place of occurrence of the external cause
CPT/HCPCS: 12011; 70450; 72125; 99283